=== PATIENT | female | born 1990 | race Caucasian/White ===

== ENCOUNTER → 2024-03-12 10:17 | Outpatient (BNVA) | payer SELFPAY | PROVIDERS: Visit Provider Physician Assistant Medical ==

== ENCOUNTER → 2024-06-07 10:07 | Outpatient (BNVA) | payer OTHER, SELFPAY | PROVIDERS: Visit Provider Physician Assistant Medical | DX: Z13.89 Encounter for screening for other disorder (principal) | CPT/HCPCS: 84450; 84460; 86803; 87389 ==

== ENCOUNTER 2024-06-19 15:07 | Outpatient (AMB) | payer MEDICAID, SELFPAY ==
--- NOTE | 2024-06-19 15:09 | MHC.OFFVIS ---
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 The patient states that she 1st injured her right knee when she was 17 years old and fell off of a horse. Since that time her symptoms have gotten worse. She has tried Tylenol and ibuprofen which gave her only mild relief. She has done physical therapy exercises which aggravated her pain. Allergies No Known Allergies Allergy (Verified 06/19/24 15:13) Medication List - Last Reconciled 06/19/24 by Lemuel Monet MD polymyxin B sulf-trimethoprim 10,000 unit- 1 mg/mL 1 drp ophthalmic (eye) Q3H 3 days Physical Exam Vital Signs: BMI result Body Mass Index 38.4 Const Other: Well-nourished well-developed very friendly female awake alert and oriented x3 in no acute distress Extrem Other: Bilateral lower extremity examination shows good capillary refill, no skin lesions noted, normal sensation light touch Right knee examination shows a minimal effusion, mild crepitus with range of motion, tenderness along her lateral joint line, positive Bia's test, no instability Results Reviewed Results Reviewed: MRI of the patient's right knee done in [place] shows mild diffuse degenerative changes as well as a tear of the anterior horn of the lateral meniscus, no acute bony abnormalities Standing full weight-bearing x-rays of the patient's right knee which she brings with her from [place] show mild diffuse joint space narrowing, no acute bony abnormalities Assessment & Plan Assessment & Plan (1) Joint pain: Code(s): M25.50 - Pain in unspecified joint Category: Medical Plan Ms. Maury Davis presents with right knee pain due to a tear of her lateral meniscus as well as diffuse joint pains possibly due to an inflammatory process such as rheumatoid arthritis or Lyme disease. Thus, I will send the patient for blood work for further evaluation. I will contact her by phone once the blood work results are available. She will call me prior to that time should her symptoms worsen in any way. I spent 20 minutes in reviewing the patient's records and imaging studies, seeing the patient and documenting in the medical record. Orders: Orders LAW Reflex Titer and Pattern Today M25.50 - Pain in unspecified joint XR knee RT 3V Today M25.561 - Pain in right knee Erythrocyte Sedimentation Rate Today M25.50 - Pain in unspecified joint C Reactive Protein Today M25.50 - Pain in unspecified joint Lyme IgG/IgM w/reflex to WB Today M25.50 - Pain in unspecified joint Rheumatoid Factor Today M25.50 - Pain in unspecified joint Medications: New ibuprofen 800 mg PO Q8H PRN 90 tabs 2RF pain Coding Level of Care Code New Pt Level 3 (48463) Complex EM visit Add On G2211 Diagnoses Joint pain M25.50
[2024-06-19 15:14] VITALS: BMI 38.4
== END 2024-06-19 15:31 | disposition home or self-care (01) ==
PROVIDERS: Visit Provider Orthopaedic Surgery
DX: M17.0 Bilateral primary osteoarthritis of knee (principal); S83.281A Other tear of lateral meniscus, current injury, right knee, initial encounter
CPT/HCPCS: 99203

== ENCOUNTER 2024-06-19 15:38 | Outpatient (REF) | payer MEDICAID, SELFPAY ==
[2024-06-19 18:02] LABS: C Reactive Protein 0.36 mg/dL (< or = 0.50)
[2024-06-19 18:05] LABS: Rheumatoid Factor < 13.0 IU/mL (<15.0)
[2024-06-19 18:12] LABS: Erythrocyte Sedimentation Rate 7 MM/HR (0-20)
[2024-06-21 01:38] LABS: Lyme Abs Screen <0.90 index
[2024-06-21 14:04] LABS: Anti Nuclear Antibody Screen NEGATIVE (NEGATIVE)
== END 2024-06-19 15:39 | disposition home or self-care (01) ==
LOC: HO.LAB 15:38
PROVIDERS: Visit Provider Orthopaedic Surgery
DX: M25.50 Pain in unspecified joint (principal)
CPT/HCPCS: 36415; 85652; 86038; 86140; 86431; 86617; 86618; 99202

== ENCOUNTER 2024-07-19 14:13 | Outpatient (AMB) | payer MEDICAID, SELFPAY ==
--- NOTE | 2024-07-19 14:14 | A.OFFVIS_ITS ---
Intake Visit Reasons: Bilateral knee pains Intake Note: Tamara is a 34 year old female presents with complaints of progressively worsening bilateral knee pains. The patient describes her pains as sharp in nature. Her pains have gotten worse over the last year in spite of continued non operative treatments. She has done physical therapy exercises which aggravated her pain. She has also tried Tylenol and ibuprofen which gave her minimal relief. She denies any locking or give-way. Allergies No Known Allergies Allergy (Verified 06/19/24 15:13) Medication List - Last Reconciled 07/19/24 by Lemuel Monet MD ibuprofen 800 mg PO Q8H PRN polymyxin B sulf-trimethoprim 10,000 unit- 1 mg/mL 1 drp ophthalmic (eye) Q3H 3 days PFSH Medical History (Updated 07/20/24 @ 10:05 by Lemuel Monet MD) Left knee pain Physical Exam Const Other: Well-nourished well-developed very friendly female awake alert and oriented x3 in no acute distress Extrem Other: Bilateral lower extremity examination shows good capillary refill, no skin lesions noted, normal sensation light touch Bilateral knee examination shows minimal effusions, mild crepitus with range of motion, no instability Office Procedures Joint Injection/Aspiration Joint Injection/Aspiration Primary Site: right knee Prep: site was prepped using aseptic technique Injected: 40 mg of, DepoMedrol and 1% plain lidocaine Procedure: The patient tolerated the procedure well Coding 74851 - Large joint Procedure code (CPT) selection complete Joint Injection/Aspiration Joint Injection/Aspiration Primary Site: left knee Prep: site was prepped using aseptic technique Injected: 40 mg of, DepoMedrol and 1% plain lidocaine Procedure: The patient tolerated the procedure well Coding 38754 - Large joint Procedure code (CPT) selection complete Results Reviewed Results Reviewed: Standing full weight-bearing x-rays of the patient's bilateral knees taken p reviously show mild diffuse joint space narrowing, no acute bony abnormalities Assessment & Plan Assessment & Plan (1) Left knee pain: Code(s): M25.562 - Pain in left knee Category: Medical (2) Right knee pain: Code(s): M25.561 - Pain in right knee Category: Medical Plan Ms. Maury Davis presents with bilateral knee pains due to early degenerative joint disease. The risks and benefits of bilateral knee cortisone injections were discussed at length with the patient. The patient wished to proceed. She tolerated the injections well. She will continue with her home exercise program. She will follow up with me on an as-needed basis should her symptoms not plateau at an unacceptable level over the next few months. I spent 22 minutes in reviewing the patient's records and imaging studies, seeing the patient and documenting in the medical record. Orders: Orders AMB Joint Injection/Aspiration 07/19/24 M25.562 - Pain in left knee AMB Joint Injection/Aspiration 07/19/24 M25.561 - Pain in right knee Coding Level of Care Code Est Pt Level 3 (58027) Complex EM visit Add On G2211 Diagnoses Left knee pain M25.562 Right knee pain M25.561 CPT Codes Coding - 90091 Large joint: 85961 - Large joint ([id number]) Coding - 25327 Large joint: 13681 - Large joint ([id number])
== END 2024-07-19 14:36 | disposition home or self-care (01) ==
PROVIDERS: Visit Provider Orthopaedic Surgery
DX: M17.0 Bilateral primary osteoarthritis of knee (principal)
CPT/HCPCS: 20610; 99213

== ENCOUNTER → 2024-07-19 14:13 | Outpatient (BNVA) | payer MEDICAID, SELFPAY | PROVIDERS: Visit Provider Orthopaedic Surgery | DX: M25.561 Pain in right knee (principal); M25.562 Pain in left knee | CPT/HCPCS: 20610; 99212; J1010; J2003 ==

== ENCOUNTER 2024-10-25 07:50 | Outpatient (AMB) | payer MEDICAID, SELFPAY ==
--- NOTE | 2024-10-25 07:56 | A.OFFVIS_ITS ---
Vital Signs 10/25/24 07:58 Height 5 ft 9 in Weight 260 lb BMI 38.4 Intake Visit Reasons: Bilateral knee pains Intake Note: Tamara is a 34 year old female who presents with complaints of progressively worsening bilateral knee pains. She describes her pains as sharp in nature. She has taken Tylenol and ibuprofen which gave her minimal relief. She has had cortisone injections in the past. The most recent set of injections gave her only mild relief. She denies any locking or giving way. She has done physical therapy which aggravated her pain. At this point her bilateral knee pains are interfering with her activities of daily living and her ability to sleep well through the night. Allergies No Known Allergies Allergy (Verified 10/25/24 07:58) Medication List - Last Reconciled 10/25/24 by Lemuel Monet MD albuterol sulfate 90 mcg/actuation 2 puffs inhalation QID PRN 30 days ibuprofen 800 mg PO Q8H PRN polymyxin B sulf-trimethoprim 10,000 unit- 1 mg/mL 1 drp ophthalmic (eye) Q3H 3 days PFSH Medical History (Updated 10/25/24 @ 08:24 by Lemuel Monet MD) Left knee pain Physical Exam Vital Signs: BMI result Body Mass Index 38.4 Const Other: Well-nourished well-developed very friendly female awake alert and oriented x3 in no acute distress Extrem Other: Bilateral lower extremity examination shows good capillary refill, no skin lesions noted, normal sensation light touch Bilateral knee examination shows minimal effusions, palpable crepitus with range of motion, pain with range of motion, no instability Office Procedures AMB Joint Injection/Aspiration Joint Injection/Aspiration Primary Site: left knee Prep: site was prepped using aseptic technique Injected: 20 mg of (Euflexxa viscosupplementation) and 1% plain lidocaine Procedure: The patient tolerated the procedure well Coding 51150 - Large joint Procedure code (CPT) selection complete AMB Joint Injection/Aspiration Joint Injection/Aspiration Primary Site: right knee Prep: site was prepped using aseptic technique Injected: 20 mg of (Euflexxa viscosupplementation) and 1% plain lidocaine Procedure: The patient tolerated the procedure well Coding 98752 - Large joint Procedure code (CPT) selection complete Results Reviewed Results Reviewed: X-rays of the patient's bilateral knees taken previously show joint space narrowing, subchondral sclerosis, no acute bony abnormalities Assessment & Plan Assessment & Plan (1) Osteoarthritis of left knee: Code(s): M17.12 - Unilateral primary osteoarthritis, left knee Category: Medical (2) Osteoarthritis of right knee: Code(s): M17.11 - Unilateral primary osteoarthritis, right knee Category: Medical Plan Ms. Maury Davis presents with bilateral knee pains due to osteoarthritis. The risks and benefits of bilateral knee Euflexxa viscosupplementation injections were discussed at length with the patient. The patient wished to proceed. She tolerated the 1st set of injections well. She will continue with her home exercise program. She will follow up next week as scheduled. I spent 20 minutes in reviewing the patient's records and imaging studies, seeing the patient and documenting in the medical record. Orders: Orders AMB Joint Injection/Aspiration Today M17.12 - Unilateral primary osteoarthritis, left knee AMB Joint Injection/Aspiration Today M17.11 - Unilateral primary osteoarthrit is, right knee Coding Level of Care Code Est Pt Level 3 (36270) Complex EM visit Add On G2211 Diagnoses Osteoarthritis of left knee M17.12 Osteoarthritis of right knee M17.11 CPT Codes Coding - 52394 Large joint: 11732 - Large joint ([id number]) Coding - 09217 Large joint: 63009 - Large joint ([id number])
[2024-10-25 07:58] VITALS: BMI 38.4
== END 2024-10-25 08:20 | disposition home or self-care (01) ==
PROVIDERS: Visit Provider Orthopaedic Surgery
DX: M17.0 Bilateral primary osteoarthritis of knee (principal)
CPT/HCPCS: 20610; 99213

== ENCOUNTER → 2024-10-25 07:50 | Outpatient (BNVA) | payer MEDICAID, SELFPAY | PROVIDERS: Visit Provider Orthopaedic Surgery | DX: M17.0 Bilateral primary osteoarthritis of knee (principal) | CPT/HCPCS: 20610; 99212; J2003; J7323 ==

== ENCOUNTER 2024-10-31 15:27 | Outpatient (AMB) | payer MEDICAID, SELFPAY ==
--- NOTE | 2024-10-31 15:32 | MHC.OFFVIS ---
Intake Visit Reasons: Inj-Bilateral Knee Euflexxa #2 Intake Note: Tamara is a 34 year old female who presents today for her second dose of Euflexxa on both of her knees. The patient states that she got mild relief from the 1st set of injections. She continues with her home exercise program. Allergies No Known Allergies Allergy (Verified 10/25/24 07:58) Medication List - Last Reconciled 11/01/24 by Lemuel Monet MD albuterol sulfate 90 mcg/actuation 2 puffs inhalation QID PRN 30 days ibuprofen 800 mg PO Q8H PRN polymyxin B sulf-trimethoprim 10,000 unit- 1 mg/mL 1 drp ophthalmic (eye) Q3H 3 days PFSH Medical History (Updated 10/25/24 @ 08:24 by Lemuel Monet MD) Left knee pain Physical Exam Extrem Other: Bilateral knee examination shows minimal effusions, palpable crepitus with range of motion, pain, no instability Assessment & Plan Assessment & Plan (1) Osteoarthritis of left knee: Code(s): M17.12 - Unilateral primary osteoarthritis, left knee Category: Medical (2) Osteoarthritis of right knee: Code(s): M17.11 - Unilateral primary osteoarthritis, right knee Category: Medical Plan Ms. Maury Davis presents with bilateral knee pains due to osteoarthritis. The risks and benefits of a 2nd set of Euflexxa injections were discussed at length with the patient. The patient wished proceed. She tolerated the injections well. She will continue with her home exercise program. She will follow up next week as scheduled. Orders: Orders AMB Joint Injection/Aspiration 10/31/24 M17.11 - Unilateral primary osteoarthritis, right knee AMB Joint Injection/Aspiration 10/31/24 M17.12 - Unilateral primary osteoarthritis, left knee Coding Level of Care Code Procedure Only Diagnoses Osteoarthritis of left knee M17.12 Osteoarthritis of right knee M17.11
== END 2024-10-31 15:57 | disposition home or self-care (01) ==
PROVIDERS: Visit Provider Orthopaedic Surgery
DX: M17.0 Bilateral primary osteoarthritis of knee (principal)
CPT/HCPCS: 20610

== ENCOUNTER → 2024-10-31 15:27 | Outpatient (BNVA) | payer MEDICAID, SELFPAY | PROVIDERS: Visit Provider Orthopaedic Surgery | DX: M17.0 Bilateral primary osteoarthritis of knee (principal) | CPT/HCPCS: 20610; J2003; J7323 ==

== ENCOUNTER 2024-11-07 15:19 | Outpatient (AMB) | payer MEDICAID, SELFPAY ==
--- NOTE | 2024-11-07 15:20 | A.OFFVIS_ITS ---
Vital Signs 11/07/24 15:21 Height 5 ft 9 in Weight 260 lb BMI 38.4 Intake Visit Reasons: Inj-Bilateral Knee Euflexxa #3 Intake Note: Tamara is a 34 year old female who presents today for her third and last dose of bilateral knee Euflexxa gel injections. She states that she has gotten mild relief from the 1st 2 injections. She continues with her exercise program. Allergies No Known Allergies Allergy (Verified 11/07/24 15:21) Medication List - Last Reconciled 11/07/24 by Lemuel Monet MD albuterol sulfate 90 mcg/actuation 2 puffs inhalation QID PRN 30 days ibuprofen 800 mg PO Q8H PRN polymyxin B sulf-trimethoprim 10,000 unit- 1 mg/mL 1 drp ophthalmic (eye) Q3H 3 days PFSH Medical History (Updated 10/25/24 @ 08:24 by Lemuel Monet MD) Left knee pain Physical Exam Vital Signs: BMI result Body Mass Index 38.4 Extrem Other: Bilateral knee examination shows minimal effusions, mild crepitus with range of motion, pain with range of motion, no instability Office Procedures AMB Joint Injection/Aspiration Joint Injection/Aspiration Primary Site: left knee Prep: site was prepped using aseptic technique Injected: 20 mg of (Euflexxa viscosupplementation) and 1% plain lidocaine Procedure: The patient tolerated the procedure well Coding 51422 - Large joint Procedure code (CPT) selection complete AMB Joint Injection/Aspiration Joint Injection/Aspiration Primary Site: right knee Prep: site was prepped using aseptic technique Injected: 20 mg of (Euflexxa viscosupplementation) and 1% plain lidocaine Procedure: The patient tolerated the procedure well Coding 57080 - Large joint Procedure code (CPT) selection complete Assessment & Plan Assessment & Plan (1) Osteoarthritis of left knee: Code(s): M17.12 - Unilateral primary osteoarthritis, left knee Category: Medical (2) Osteoarthritis of right knee: Code(s): M17.11 - Unilateral primary osteoarthritis, right knee Category: Medical Plan Tamara presents with bilateral knee pains due to osteoarthritis. The risks and benefits of a 3rd set of Euflexxa injections were discussed at length with the patient. The patient wished to proceed. She tolerated the injections well. She will continue with her home exercise program. She will contact me prior to her follow-up appointment in 3 months should any questions or concerns arise. Orders: Orders AMB Joint Injection/Aspiration Today M17.12 - Unilateral primary osteoarthritis, left knee AMB Joint Injection/Aspiration Today M17.11 - Unilateral primary osteoarth ritis, right knee Medications: New diclofenac sodium 1% (Arthritis Pain (diclofenac)) Apply to effected area as directed 2 grams topical QID 100 grams 3RF Coding Level of Care Code Procedure Only Diagnoses Osteoarthritis of left knee M17.12 Osteoarthritis of right knee M17.11 CPT Codes Coding - 24270 Large joint: 72450 - Large joint ([id number]) Coding - 41327 Large joint: 74155 - Large joint ([id number])
[2024-11-07 15:21] VITALS: BMI 38.4
--- OUTSIDE RECORDS SUMMARY | 2024-11-07 17:16 | XMS_ITS | Clinical Summary ---
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 Non-restorable tooth 05/07/2024 Social History Tobacco Use Types Packs/Day Years Used Date Smoking Tobacco: Never Smokeless Tobacco: Never Tobacco Cessation:Counseling Given: Not Answered Alcohol Use Standard Drinks/Week Comments Defer 0 (1 standard drink = 0.6 oz pur e alcohol) Comments Unknown Sex and Gender Information Value Date Recorded Sex Assigned at Female 08/06/2022 5:32 PM EDT Legal Sex Female 5:32 PM EDT Gender Identity Female 08/06/2022 5:32 PM EDT Sexual Orientation Choose not to disclose 2023 10:59 AM EDT Plan of Treatment Health Maintenance Due Date Last Done Comments Dental Oral Exam 1991 Dental Prophylaxis 1991 Dental X-Ray: Bitewings 1991 Depression Screening 1991 HIV Screening 1991 SDOH Screening 1991 Alcohol/Substance Use Screening 2003 Family Planning (PISQ) 2006 Hepatitis C Screening 2009 DTaP/Tdap/Td Vaccines (1 - Tdap) 2010 Hepatitis B Vaccines (1 of 3 - 19+ 3-dose series) 2010 Pap Smear 2012 Cervical Cancer Screening 2021 HPV/Cotest 2021 COVID-19 Vaccine (1 - 2023-2 5 season) 2024 Influenza Vaccine (#1) 2024 Tobacco Screening 05/07/2025 05/07/2024 Dental X-Ray: Full Mouth 05/08/2027 05/07/2024 Zoster Vaccines (1 of 2) 2041 RSV Patients and Pa tients Aged 60 years or older (1 - 1-dose 75+ series) 2066 HIB Vaccines Aged Out No longer eligi ble based on patient's age to complete this topic HPV Vaccines Aged Out No longer eligi ble based on patient's age to complete this topic Hepatitis A Vaccines Aged Out No long er eligible based on patient's age to complete this topic IPV Vaccines Aged Out No longer eligi ble based on patient's age to complete this topic Meningococcal Vaccine Aged Out No crow tori eligible based on patient's age to complete this topic Pneumococcal Vaccine: Pediat rics (0 to 5 Years) and At-Risk Patients (6 to 49) Years) Aged Out No longer elig ible based on patient's age to complete this topic RSV under 20 months Aged Out No longe r eligible based on patient's age to complete this topic Rotavirus Vaccines Aged Out No longer eligible based on patient's age to complete this topic Procedures Procedure Name Priority Date/Time Associated Diagnosis Comments PANORAMIC RADIOGRAPHIC IMAGE Routine 05/07/2024 3:30 PM EDT from Last 3 Months or Most Recently Relevant to Health Maintenance Insurance [facility] MEDICAID STAND ADULT
--- OUTSIDE RECORDS SUMMARY | 2024-11-07 17:16 | XMS_ITS | Patient Health Record ---
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 Primary Care Provider Unavailab MARCELLE Ba Unavailable [phone] Reason For Referral No Information Medications Medication SIG (Take, Route, Frequency, Duration) Notes Start Date End Date Status ProAir HFA 108 (90 Base) MCG/ACT 1 puff as needed Inhalation every 4 hrs Active Multivitamin - 1 tablet Orally Once a day for 30 day(s) Active Dicyclomine HCl 20 MG 1 tablet Orally Th ree times a day for 30 day(s) Active Co Q 10 60 MG as directed Orally Active Vitamin D 50 MCG (1999 UT) 1 tablet Oral ly Once a day for 30 day(s) Active Vitamin C 500 MG as directed Orally Active Plan Of Treatment No Information Insurance Providers Payer Name Payer Address Payer Phone Subscriber Number Group Number Insured Name Patient Relationship to Insured Coverage Start Date Coverage End Date [employer] [address] [address] [place], [place] [id number] Tamara Mendiola Self - patient is the insured 1 Medical (General) History Medical History History ICD Code Onychomycosis Pure Hyperglyceridemia Obesity Allergic Rhinitis Asthma Urinary Disorder Sleep Disorder Urinary Incontinence HPV Pelvic and Perineal Pain Surgical History Surgery Date(Month/Year) Tonsillectomy Hospitalization History Reason Date(Month/Year) See Notes
== END 2024-11-07 15:43 | disposition home or self-care (01) ==
PROVIDERS: Visit Provider Orthopaedic Surgery
DX: M17.0 Bilateral primary osteoarthritis of knee (principal)
CPT/HCPCS: 20610

== ENCOUNTER → 2024-11-07 15:19 | Outpatient (BNVA) | payer MEDICAID, SELFPAY | PROVIDERS: Visit Provider Orthopaedic Surgery | DX: M17.0 Bilateral primary osteoarthritis of knee (principal) | CPT/HCPCS: 20610; J2003; J7323 ==

== ENCOUNTER 2025-04-17 01:47 | Emergency (ER) | payer OTHER, SELFPAY ==
--- NOTE | ~2025-04-17 | US_ITS ---
EXAMINATION: US ABDOMEN LIMITED CLINICAL INFORMATION: Right upper quadrant abdominal pain. COMPARISON: None available. TECHNIQUE: Real-time ultrasound of the right upper quadrant abdomen using grayscale technique. FINDINGS: There are multiple layering intraluminal hyperechoic lesions with posterior shadowing within the gallbladder. No pericholecystic fluid collection or gallbladder wall thickening. Common bile duct measures 4 mm. No gross ascites. US/US abdomen limited IMPRESSION: Cholelithiasis. No choledocholithiasis. Electronically signed by: Quincy Morales MD 04/17/2025 09:05 AM EDT
[2025-04-17 01:55] VITALS: BP 137/83; PULSE 79; RESP 18; TEMP 36.8; O2SAT 97; BMI 38.6
[2025-04-17 02:23] LABS: Hematocrit 36.1 % (37.0-47.0); Hemoglobin 12.6 g/dl (12.0-16.0); Mean Corpuscular HGB Conc 34.9 g/dl (31.0-35.0); Mean Corpuscular Hemoglobin 27.2 pg (27.0-33.0); Mean Corpuscular Volume 78.0 fL (80.0-98.0); NRBC Abs Auto 0.000 X10*3/uL (0.0-0.012); NRBC Pct Auto 0.0 /100WBC (0.0-0.2); Platelet Count 261 X10*3/uL (160-400); Red Blood Count 4.63 X10*6/uL (4.20-5.50); White Blood Count 7.9 X10*3/uL (4.8-10.8)
[2025-04-17 02:25] LABS: Appearance Urine Clear; Glucose Urine UA Negative (Negative); PH 6.5 (5.0-9.0); Specific Gravity - Urine 1.025 (1.005-1.025); UMIC TRIGGER UACC YES
[2025-04-17 02:27] LABS: UPreg QC Valid YES
[2025-04-17 02:30] LABS: Alanine Aminotransferase 25 U/L (0-31); Albumin Level 3.9 g/dL (3.5-5.0); Alkaline Phosphatase 43 U/L (39-117); Anion Gap 13 (12-20); Aspartate Amino Transferase 25 U/L (5-31); Blood Urea Nitrogen 14 mg/dL (9-16); Calcium 8.5 mg/dL (8.4-10.2); Carbon Dioxide 24 mmol/L (22-29); Chloride 106 mmol/L (96-108); Creatinine Clr Calc Pharmacy 114.8; Estimated Glomerular Filt Rate > 60; Lipase 29 U/L (8-78); Magnesium 2.1 mg/dL (1.6-2.6); Potassium 3.7 mmol/L (3.3-5.1); Sodium 139 mmol/L (135-145); Total Protein 6.6 g/dL (6.5-8.0)
[2025-04-17 03:19] LABS: UACC Culture Trigger YES
[2025-04-17 06:05] VITALS: BP 134/83; PULSE 68; TEMP 36.6; O2SAT 100
--- NOTE | 2025-04-17 07:54 | ED.ABDPAIN ---
HPI - Abdominal Pain General Chief Complaint: Abdominal Pain Stated Complaint: upper right abdominal pain, vomiting Time Seen by Provider: 04/17/25 07:47 Source: patient Mode of arrival: ambulatory History of Present Illness ED Provider: HPI narrative: 35-year-old woman otherwise healthy takes p.r.n. albuterol and she is on control pills reports that she has history of gallstones and occasionally has been having biliary colic, woke up 01:00 in the morning with right upper quadrant pain radiating up around her flank, had nausea vomited, ate some chips prior to bedtime, no fevers or chills, no skin color changes. No vaginal bleeding or discharge. MD elicited complaint: abdominal pain Related Data Previous Rx's ?Medication ?Instructions ?Recorded polymyxin B sulfate 10,000 1 drp ophthalmic (eye) Q3H 3 days 06/07/24 unit-trimethoprim 1 mg/mL eye drops #10 mL ibuprofen 800 mg tablet 800 mg PO Q8H PRN pain #90 tabs 06/19/24 albuterol sulfate 90 mcg/actuation 2 puff inhalation QID PRN 09/25/24 aerosol inhaler shortness of breath or wheezing 30 days #8.5 grams diclofenac sodium 1 % topical gel 2 g topical QID #100 grams 11/07/24 (Arthritis Pain (diclofenac)) Allergies Allergy/AdvReac Type Severity Reaction Status Date / Time No Known Allergies Allergy Verified 04/17/25 01:58 Review of Systems Constitutional: Reports as per HPI [facility] Past Medical History Medical History (Updated 04/17/25 @ 09:27 by Toan Elizabeth DO) Left knee pain Social History Social History Smoked in Last 30 Days: No Use of substances other than those prescribed or required for medical reasons: No Advance Directives: No Advance Directives Information Provided: Yes Patient : No Physical Exam ED Vital Signs: Vital Signs - 24 hr 04/17/25 01:55 04/17/25 06:05 04/17/25 07:58 Temperature 98.3 F 97.8 F 98.0 F Pulse Rate 79 68 78 Respiratory Rate 18 18 Blood Pressure 137/83 134/83 125/84 Pulse Oximetry 97 100 98 Oxygen Delivery Method Room Air Room Air Room Air BMI result Body Mass Index 38.6 Const Other: Gen: ?Overall well-appearing patient HEENT: PERRLA, EOMI, Neck: Supple, no LAD CV: RRR, no obvious murmurs appreciated Resp: ?No wheezing rales rhonchi no stridor moving air well Abd: ?Bowel sounds present, right upper quadrant tenderness to palpation MSK: FROM, strength 5/5 all extremities Skin: Warm, dry, intact, no jaundice Neuro: ?Alert and oriented x3, moving upper and lower extremities symmetrically, no obvious facial asymmetry noted Medical Decision Making Medical Decision Making [facility] [place] Narrative: 08:03 Continues to have tenderness in the right upper quadrant, blood work reassuring, if she has any evidence for cholecystitis we will plan for surgery consult on admission, other considerations are listed as below, this is not consistent with a SBO did not feel she requires further imaging such as CT or ACS no chest pain or shortness of breath, no hypoxia tachycardic to suspect PE, pending ultrasound we will determine further disposition and workup for now she is fairly symptomatic but does have pain on palpation we will give Toradol we will obtain ultrasound, patient's questions have been answered. 0923: Patient continues to be asymptomatic, I sent a text to Kristan from surgery to make sure patient has outpatient follow up Differential Diagnosis Differential Diagnoses: The differential diagnosis associated with the presentation includes Cholecystitis, pancreatitis, hepatitis, gastritis, cholangitis, choledocholithiasis, SBO, ACS Admission/Observation Consideration of admission/observation: Escalation of care including admission/observation considered Lab Data [facility] [place] Lab Attestation statement: I reviewed the patient's lab results. 04/17/25 02:09 04/17/25 02:09 Labs: Lab Results 04/17/25 04/17/25 Range/Units 02:09 02:10 WBC 7.9 (4.8-10.8) X10*3/uL RBC 4.63 (4.20-5.50) X10*6/uL Hgb 12.6 (12.0-16.0) g/dl Hct 36.1 L (37.0-47.0) % MCV 78.0 L (80.0-98.0) fL MCH 27.2 (27.0-33.0) pg MCHC 34.9 (31.0-35.0) g/dl RDW 14.1 (11.0-16.0) % Plt Count 261 (160-400) X10*3/uL MPV 10.8 (9.4-12.3) fL Absolute Nucleated RBC 0.000 (0.0-0.012) X10*3/uL Nucleated RBC % (auto) 0.0 (0.0-0.2) /100WBC Sodium 139 (135-145) mmol/L Potassium 3.7 (3.3-5.1) mmol/L Chloride 106 (96-108) mmol/L Carbon Dioxide 24 (22-29) mmol/L Anion Gap 13 (12-20) BUN 14 (9-16) mg/dL Creatinine 0.95 (0.5-1.4) mg/dL Estim Creat Clear Calc 114.8 Estimated GFR > 60 Random Glucose 135 H (60-115) mg/dL Calcium 8.5 (8.4-10.2) mg/dL Magnesium 2.1 (1.6-2.6) mg/dL Total Bilirubin 0.2 (0.0-1.0) mg/dL Direct Bilirubin < 0.2 (0.0-0.5) mg/dL AST 25 (5-31) U/L ALT 25 (0-31) U/L Alkaline Phosphatase 43 (39-117) U/L Total Protein 6.6 (6.5-8.0) g/dL Albumin 3.9 (3.5-5.0) g/dL Lipase 29 (8-78) U/L Urine Color Yellow Urine Appearance Clear Urine pH 6.5 (5.0-9.0) Ur Specific [place] 1.025 (1.005-1.025) Urine Protein Trace (Neg-Trace) mg/dL Urine Glucose (UA) Negative (Negative) mg/dL Urine Ketones Trace (Negative) mg/dL Urine Blood Large (3+) H (Negative) Urine Nitrite Negative (Negative) Ur Leukocyte Esterase Moderate (2+) H (Negative) Urine RBC 3-5 H (0-2) /HPF Urine WBC 11-20 H (0-5) /HPF Ur Squamous Epith Cells 3-5 (0-2) /HPF Urine Bacteria 2+ (None Seen) Hyaline Casts 0-2 (0-2) /LPF Urine Test NEGATIVE (NEGATIVE) Radiology Impression Discussion of test interpretation with radiology: I have reviewed the radiologist's reading. Radiologist Impression: US/US abdomen limited IMPRESSION: Cholelithiasis. No choledocholithiasis Medications Administered Discontinued Medications Generic Name Dose Route Start Last Admin Trade Name Haris PRN Reason Stop Dose Admin Ketorolac Tromethamine 15 mg 04/17/25 07:54 04/17/25 08:11 Ketorolac Tromethamine 15 Mg/Ml Vial IM 04/17/25 07:55 15 mg ONCE ONE Administration Discharge Plan Discharge Clinical Impression: Biliary colic, Cholelithiases Patient Disposition: Home, Self-Care Additional Instructions: Evaluated with pain and right upper quadrant radiating around the back, fairly consistent with biliary colic. Description as well as eating greasy food before going to bed, as discussed small meals, carbs and protein okay, no fatty or greasy foods, your blood work has been reassuring, ultrasound with gallstones but no inflammation or infection of the gallbladder, I essentially formation to physician press operator assistant covering Dr. Reynolds's service to make sure you have outpatient follow up appointment, worsening symptoms concerns come back to the ER. Prescriptions: No Action albuterol sulfate 90 mcg/actuation HFA aerosol inhaler 2 puff inhalation QID PRN (Reason: shortness of breath or wheezing) 30 Days Qty: 8.5 11RF ibuprofen 800 mg tablet 800 mg PO Q8H PRN (Reason: pain) Qty: 90 2RF diclofenac sodium [Arthritis Pain (diclofenac)] 1 % gel 2 g topical QID Qty: 100 3RF Rx Instructions: Apply to effected area as directed polymyxin B sulf-trimethoprim 10,000 unit- 1 mg/mL drops 1 drp ophthalmic (eye) Q3H 3 Days Qty: 10 0RF Rx Instructions: use only while awake; do not exceed 6 drops in 24 hours. Continue for a total of 5 days if any symptoms develop Referrals: Chai Reynolds MD [Physician, General Surgery] Clinical Impression: Cholelithiases; Biliary colic Stand Alone Forms: Work/School Release Print Language: Greenlandic
[2025-04-17 07:58] VITALS: BP 125/84; PULSE 78; RESP 18; TEMP 36.7; O2SAT 98
--- NOTE | 2025-04-17 10:03 | P.CONGS_ITS ---
History of Present Illness Consult details Consult date: 04/17/25 <Kristan Hirsch PA-C - Last Filed: 04/17/25 10:17> Reason for consult: gallstones <Kristan Hirsch PA-C - Last Filed: 04/17/25 10:17> Narrative: 35 year old female with known gallstones presented with acute onset of RUQ abd pain. She reports she was awoken last night around 1am with sharp, severe RUQ pain. The pain wrapped around her side. She vomited once. The pain persisted and she therefore decided to seek evaluation in the ED. She reports eating kettle chips late last night. She reports multiple prior episodes over the past 6 years. She reports after her first initial episode, she was evaluated in [place] and found to have gallstones. Laparoscopic cholecystectomy was recommended at that time however she decided against it. The pain usually subsided with those episodes after vomiting. Work up in the ED included CBC, BMP, LFTs which were all WNL. ABD US showed gallstones without wall thickening or pericholecystic fluid, no dilated biliary ducts. She feels improved currently and just reports some mild soreness. She denies fever, chills, diarrhea, constipation, chest pain, difficulty breathing, back pain, change in skin or urine color. She denies any prior abdominal surgery. < Kristan Hirsch PA-C - Last Filed: 04/17/25 10:17> Review of Systems 2 Review of Systems: Yes all other systems are reviewed and are negative < Kristan Hirsch PA-C - Last Filed: 04/17/25 10:17> [facility] Past Medical History Medical History: Medical History (Updated 04/17/25 @ 09:27 by Toan Elizabeth DO) Left knee pain <NIELS Ramon Last Filed: 04/17/25 10:17> Meds Allergies/Adverse reactions: Allergies Allergy/AdvReac Type Severity Reaction Status Date / Time No Known Allergies Allergy Verified 04/17/25 01:58 <NIELS Ramon Last Filed: 04/17/25 10:17> Physical Exam 2 Vital Signs: Vital Signs: Last Vital Signs Temp 98.0 F 04/17/25 07:58 Pulse 78 04/17/25 07:58 Resp 18 04/17/25 07:58 BP 125/84 04/17/25 07:58 Pulse Ox 98 04/17/25 07:58 O2 Del Method Room Air 04/17/25 07:58 BMI result Body Mass Index 38.6 <NIELS Ramon Last Filed: 04/17/25 10:17> Const: General: comfortable, no acute distress and alert <Kristan Hirsch PA-C [place] Last Filed: 04/17/25 10:17> Orientation/consciousness: patient oriented x3 <Kristan Hirsch PA-C [place] Last Filed: 04/17/25 10:17> Resp: Effort & Inspection: normal respiratory effort <NIELS Ramon Last Filed: 04/17/25 10:17> GI: Inspection: Yes normal to inspection, No distended and No scar < Kristan Hirsch PA-C [place] Last Filed: 04/17/25 10:17> Palpation (GI): Soft to palpation, Tenderness to palpation present (GI) (very mild RUQ tenderness to deep palpation) Ellison's sign negative, no guarding and not rigid <Kristan Hirsch PA-C [place] Last Filed: 04/17/25 10:17> Skin: General skin exam: no rashes or lesions noted and no jaundice < NIELS Ramon Last Filed: 04/17/25 10:17> Neuro: General: patient oriented x3 and moves all extremities <Kristan Hirsch PA-C [place] Last Filed: 04/17/25 10:17> Results Labs Result diagrams: 04/17/25 02:09 04/17/25 02:09 <Kristan Hirsch PA-C [place] Last Filed: 04/17/25 10:17> Labs: Abnormal lab results 04/17/25 Range/Units 02:09 Hct 36.1 L (37.0-47.0) % MCV 78.0 L (80.0-98.0) fL Random Glucose 135 H (60-115) mg/dL Urine Blood Large (3+) H (Negative) Ur Leukocyte Esterase Moderate (2+) H (Negative) Urine RBC 3-5 H (0-2) /HPF Urine WBC 11-20 H (0-5) /HPF Short CBC 04/17/25 Range/Units 02:09 WBC 7.9 (4.8-10.8) X10*3/uL Hgb 12.6 (12.0-16.0) g/dl Hct 36.1 L (37.0-47.0) % Plt Count 261 (160-400) X10*3/uL BMP 04/17/25 02:09 Sodium 139 Potassium 3.7 Chloride 106 Carbon Dioxide 24 BUN 14 Creatinine 0.95 Calcium 8.5 Liver Function 04/17/25 Range/Units 02:09 Total Bilirubin 0.2 (0.0-1.0) mg/dL Direct Bilirubin < 0.2 (0.0-0.5) mg/dL AST 25 (5-31) U/L ALT 25 (0-31) U/L Alkaline Phosphatase 43 (39-117) U/L Albumin 3.9 (3.5-5.0) g/dL Urine 04/17/25 04/17/25 Range/Units 02:09 02:10 Urine Color Yellow Urine Appearance Clear Urine pH 6.5 (5.0-9.0) Ur Specific [place] 1.025 (1.005-1.025) Urine Protein Trace (Neg-Trace) mg/dL Urine Glucose (UA) Negative (Negative) mg/dL Urine Test NEGATIVE (NEGATIVE) All other labs normal. <Kristan Hirsch PA-C - Last Filed: 04/17/25 10:17> Imaging Abdominal ultrasound report/results: report reviewed and image reviewed <NIELS Ramon Last Filed: 04/17/25 10:17> Additional studies: Labs reviewed. <NIELS Ramon Last Filed: 04/17/25 10:17> Assessment and Plan (1) Biliary colic: Status: Acute <NIELS Ramon Last Filed: 04/17/25 10:17> (2) Cholelithiases: Qualifiers: Biliary obstruction: without biliary obstruction C holecystitis presence: without cholecystitis Cholelithiasis location: g allbladder Qualified Code(s): K80.20 - Calculus of gallbladder without cholecystitis without obstruction <Kristan Hirsch PA-C - Last Filed: 04/17/25 10:17> Status: Acute <Kristan NIELS Hirsch - Last Filed: 04/17/25 10:17> 35 year old female with known gallstones who presented with acute onset RUQ pain and vomiting. No leukocytosis, LFTs WNL. Her symptoms have subsequently subsided. She has very mild residual tenderness. Clinical picture consistent with biliary colic, no evidence of acute cholecystitis at this time. Discussed proceeding with laparoscopic cholecystectomy, possible open as an outpatient procedure given her recurrent biliary colic. Risks, benefits, alternatives of laparoscopic possible open cholecystectomy were reviewed with the patient including but not limited to bleeding, infection, numbness, pain, poor healing, injury to the liver, bowel or bile ducts, leak, retained stones and the patient wishes to proceed.?All questions were answered. She will call the office to schedule at her convenience. She can call sooner or return to the ED if she develops worsening RUQ pain, persistent nausea/vomiting, fevers/chills, jaundice. <Kristan Hirsch PA-C - Last Filed: 04/17/25 10:17> 35 year old female with known gallstones who presented with acute onset RUQ pain and vomiting. No leukocytosis, LFTs WNL. Her symptoms have subsequently subsided. She has very mild residual tenderness. Clinical picture consistent with biliary colic, no evidence of acute cholecystitis at this time. Discussed proceeding with laparoscopic cholecystectomy, possible open as an outpatient procedure given her recurrent biliary colic. Risks, benefits, alternatives of laparoscopic possible open cholecystectomy were reviewed with the patient including but not limited to bleeding, infection, numbness, pain, poor healing, injury to the liver, bowel or bile ducts, leak, retained stones and the patient wishes to proceed.?All questions were answered. She will call the office to schedule at her convenience. She can call sooner or return to the ED if she develops worsening RUQ pain, persistent nausea/vomiting, fevers/chills, jaundice. Patient seen and examined in the ED and radiology studies reviewed. Agree with the assessment of biliary colic due to cholelithasis and would recommend an elective laparoscopic cholecystectomy, possible open. After a review of the procedure, alternatives and risks, she consents to the Lapaorscopic or possible open cholecystectomy. My office will call her to make arrangements for the surgery. <Chai Reynolds MD - Last Filed: 04/17/25 10:41> Procedures Date of Service Date of Service: 04/17/25 <Kristan Hirsch PA-C - Last Filed: 04/17/25 10:17> 04/17/25 <Chai Reynolds MD - Last Filed: 04/17/25 10:41>
[2025-04-17 10:10] VITALS: BP 119/52; PULSE 66; RESP 18; TEMP 36.7; O2SAT 99
[2025-04-17 10:15] VITALS: BP 119/52; PULSE 66; RESP 18; TEMP 36.7; O2SAT 99
== END 2025-04-17 10:15 | disposition home or self-care (01) ==
PROVIDERS: Emergency Provider Emergency Medicine
DX: K80.70 Calculus of gallbladder and bile duct without cholecystitis without obstruction (principal); R10.11 Right upper quadrant pain; R11.2 Nausea with vomiting, unspecified; Z79.899 Other long term (current) drug therapy
CPT/HCPCS: 36415; 76705; 80053; 81001; 81025; 82248; 83690; 83735; 85027; 87086; 96372; 99284; J1885

== ENCOUNTER → 2025-04-17 04:38 | Outpatient (BNV) | payer OTHER, SELFPAY | PROVIDERS: Emergency Provider Emergency Medicine; Visit Provider Surgery | DX: K80.50 Calculus of bile duct without cholangitis or cholecystitis without obstruction (principal); K80.20 Calculus of gallbladder without cholecystitis without obstruction | CPT/HCPCS: 99283 ==

== ENCOUNTER → 2025-04-17 07:53 | Outpatient (BNV) | payer OTHER, SELFPAY | PROVIDERS: Emergency Provider Emergency Medicine; Visit Provider Radiology Diagnostic Radiology | DX: K80.20 Calculus of gallbladder without cholecystitis without obstruction (principal) | CPT/HCPCS: 76705 ==

== ENCOUNTER 2025-04-24 11:20 | Outpatient (AMB) | payer OTHER, SELFPAY ==
--- NOTE | 2025-04-24 11:26 | MHC.OFFVIS ---
Vital Signs 04/24/25 11:27 Height 5 ft 9 in Weight 261 lb BMI 38.5 Intake Visit Reasons: Left knee pain and giving way Intake Note: Tamara is a 35 year old female who presents with complaints of progressively worsening left knee pain and giving way. The patient describes her pain as sharp in nature. Most of the pain is along the medial aspect of her knee. She states that her left knee will give out several times per day. She has tried Tylenol and ibuprofen which gave her only mild relief. She has also done physical therapy exercises which aggravated her pain. Allergies No Known Allergies Allergy (Verified 04/24/25 11:27) Medication List - Last Reconciled 04/24/25 by Lemuel Monet MD albuterol sulfate 90 mcg/actuation 2 puffs inhalation QID PRN 30 days celecoxib (Celebrex) 200 mg PO DAILY PRN diclofenac sodium 1% (Arthritis Pain (diclofenac)) 2 grams topical QID ibuprofen 800 mg PO Q8H PRN polymyxin B sulf-trimethoprim 10,000 unit- 1 mg/mL 1 drp ophthalmic (eye) Q3H 3 days PFSH Medical History (Updated 04/24/25 @ 11:49 by Lemuel Monet MD) Left knee pain Physical Exam Vital Signs: BMI result Body Mass Index 38.5 Const Other: Well-nourished well-developed very friendly female awake alert and oriented x3 in no acute distress Extrem Other: Left knee examination shows a minimal effusion, mild crepitus with range of motion, tenderness along her medial joint line, positive Bia's test, no instability Results Reviewed Results Reviewed: Standing full weight-bearing x-rays of the patient's left knee show mild diffuse joint space narrowing, no acute bony abnormalities Assessment & Plan Assessment & Plan (1) Tear of medial meniscus of left knee: Code(s): S83.242A - Other tear of medial meniscus, current injury, left knee, initial encounter Category: Medical Plan Ms. Maury Davis presents with progressively worsening left knee pain and mechanical symptoms most likely due to a medial meniscus tear. Thus, I will send the patient for an MRI of her left knee for further evaluation. I will see her back once the MRI is completed to discuss the findings and treatment options. Feel free to call me at any time should questions regarding her orthopedic management arise. I spent 21 minutes in reviewing the patient's records and imaging studies, seeing the patient and documenting in the medical record. Orders: Orders MR knee LT wo con 04/25/25 S83.242A - Other tear of medial meniscus, current injury, left knee, initial encounter Medications: New celecoxib (Celebrex) 200 mg PO DAILY PRN 30 caps 3RF pain Coding Level of Care Code Est Pt Level 3 (56302) Complex EM visit Add On G2211 Diagnoses Tear of medial meniscus of left knee S83.242A
[2025-04-24 11:27] VITALS: BMI 38.5
== END 2025-04-24 11:49 | disposition home or self-care (01) ==
LOC: HO.HOS 11:21
PROVIDERS: Visit Provider Orthopaedic Surgery
DX: S83.242A Other tear of medial meniscus, current injury, left knee, initial encounter (principal)
CPT/HCPCS: 99213; G2211

== ENCOUNTER → 2025-04-24 11:20 | Outpatient (BNVA) | payer OTHER, SELFPAY | PROVIDERS: Visit Provider Orthopaedic Surgery | DX: S83.242A Other tear of medial meniscus, current injury, left knee, initial encounter (principal) | CPT/HCPCS: 99212 ==

== ENCOUNTER 2025-05-11 18:30 | Outpatient (REF) | payer OTHER, SELFPAY ==
--- NOTE | ~2025-05-11 | MR_ITS ---
CLINICAL HISTORY: S83.242A - Other tear of medial meniscus, current injury, left knee, ini... MR left knee without gadolinium Comparison: None provided Findings: No acute fracture or pathologic bone lesion. Lateral patellar subluxation. Lateral ventral trochlear prominence with shallow trochlear groove. Moderate knee joint effusion with small Patel's cyst. Mild edema within the superolateral aspect of the infrapatellar fat pad. Moderate to severe articular cartilage loss overlies the lateral patellar facet and lateral femoral trochlea. Anterior and posterior cruciate ligaments are intact. Collateral ligaments are intact. No disruption of the patellar retinacula or iliotibial band. No tears of the quadriceps, patellar, popliteus, or flexor tendons. Linear horizontal high T2 signal intensity traverses the inner, middle, and peripheral thirds of the medial meniscal body and posterior horn demonstrating inferior articular surface extension, indicating horizontal tearing. Linear oblique high T2 signal intensity traverses the inner, middle, and peripheral thirds of the lateral meniscal body, demonstrating free edge extension, indicating horizontal tearing. IMPRESSION: 1. Medial and lateral meniscal tearing. 2. Findings consistent with lateral patellofemoral friction syndrome. 3. Knee joint effusion and Patel's cyst. This document has been electronically signed by: Brenda Valencia MD on 05/13/2025 15:05:04
== END 2025-05-11 18:31 | disposition home or self-care (01) ==
LOC: HO.MRI 18:30
PROVIDERS: Visit Provider Orthopaedic Surgery
DX: S83.242A Other tear of medial meniscus, current injury, left knee, initial encounter (principal)
CPT/HCPCS: 73721

== ENCOUNTER → 2025-05-11 18:38 | Outpatient (BNV) | payer OTHER, SELFPAY | PROVIDERS: Visit Provider Radiology Diagnostic Radiology | DX: S83.242A Other tear of medial meniscus, current injury, left knee, initial encounter (principal); S83.282A Other tear of lateral meniscus, current injury, left knee, initial encounter; M71.22 Synovial cyst of popliteal space [Baker], left knee; M25.462 Effusion, left knee | CPT/HCPCS: 73721 ==

== ENCOUNTER 2025-05-20 09:29 | Day surgery (SDC) | payer OTHER, SELFPAY ==
--- OUTSIDE RECORDS SUMMARY | 2025-04-18 07:57 | XMS_ITS | Patient Health Record ---
Author Organization [facility] Billing Info Address [address] [place] [address] [place] [address] Care Team Providers Care Robotic Maintenance Technician Name Role Phone Hunter Fish Primary Care Provider Unavailab MARCELLE Ba Unavailable [phone] Reason For Referral No Information Medications Medication [...] Insured Coverage Start Date Coverage End Date [facility] [address] [address] [place], [place] [id number] Tamara Mendiola Self - patient is the insured 1 Medical (General) History Medical History History ICD Code Onychomycosis Pure Hyperglyceridemia Obesity Allergic Rhinitis Asthma Urinary Disorder Sleep Disorder Urinary Incontinence HPV Pelvic and Perineal Pain Surgical History Surgery Date(Month/Year) Tonsillectomy Hospitalization History Reason Date(Month/Year) See Notes
--- OUTSIDE RECORDS SUMMARY | 2025-04-18 07:57 | XMS_ITS | Clinical Summary ---
Author Organization [employer] Address [address] [facility] [address] [place] [address] Care Team Providers Care Public Aid Eligibility Assistant Name Role Phone Unavailable Primary Care Provider [...] 1991 HIV Screening 1991 SDOH Screening 1991 Disability Screening 1991 Alcohol/Substance Use Screening 2003 Family Planning (PISQ) 2006 Hepatitis C Screening 2009 DTaP/Tdap/Td Vaccines (1 - Tdap) 2010 Hepatitis B Vaccines (1 of 3 - 19+ 3-dose series) 2010 Pap Smear 2012 Cervical Cancer Screening 2021 HPV/Cotest 2021 COVID-19 Vaccine (1 - 2023-2 5 season) 2024 Tobacco Screening 05/07/2025 05/07/2024 Influenza Vaccine (#1) 2025 Dental X-Ray: Full Mouth 05/08/2027 05/07/2024 Zoster [...] patient's age to complete this topic Meningococcal B Vaccine Aged Out No l onger eligible based on patient's age to complete this topic Meningococcal Vaccine Aged Out No crow tori eligible based on patient's age to complete this topic Pneumococcal Vaccine: Pediat rics (0 to 5 Years) and At-Risk Patients (6 to 49) Years Aged Out No longer eligi ble based [...] Most Recently Relevant to Health Maintenance Insurance [facility] STAND ADULT
[2025-05-16 13:10] VITALS: BMI 39.2
--- NOTE | 2025-05-17 09:51 | HO.ANESPROP2 ---
Documented by User: Darlene Elaine NP 05/17/25 09:51 HPI - Anesthesia Eval Consult details Narrative: 35yo F for Cholecystectomy Laparoscopic,possible open PMFSH Active Problems Active Problems: All Active Problems Tear of medial meniscus of left knee (Acute) Osteoarthritis of right knee (Acute) Osteoarthritis of left knee (Acute) Joint pain (Acute) Right knee pain (Acute) Left knee pain (Acute) Past Medical History Medical History Hx of endometriosis Snores Asthma Osteoarthritis Left knee pain Surgical History Surgical History Hx of tonsillectomy (1998) Social History Social History Household Members: Significant Other Housing: House Are you a primary pharmacy customer care specialist to a significant other at home: No Do you presently have visiting nurse or other home services: No Patient Tobacco Use Status: Former Tobacco user Second Hand Smoke Exposure: No Substance Use Type: Marijuana Substance Use Type Other:: gummies for sleep Have you been hit, kicked, punched, or otherwise hurt by someone within the past year? If so, by whom?: No Are you DNR?: No Advance Directives: No Advance Directives Information Provided: Yes Advance Directives on File: No Patient : No FDLMP: 03/10/2025 : No Poor oral hygiene: No Meds Allergies Allergy/AdvReac Type Severity Reaction Status Date / Time No Known Allergies Allergy Verified 05/16/25 13:20 Exam Height,Weight and Vital Signs: Height 5 ft 9 in Weight 120.4 kg Pertinent Lab Results Pertinent Lab Results: Laboratory Tests 04/17/25 02:09 WBC 7.9 Hgb 12.6 Hct 36.1 L Plt Count 261 Sodium 139 Potassium 3.7 Chloride 106 Carbon Dioxide 24 BUN 14 Creatinine 0.95 Assessment and Plan Assessment Anesthesia Assessment: Chart Reviewed Documented by User: Ludy Patterson MD 05/20/25 10:15 PMFSH Past Medical History Medical History Hx of endometriosis Snores Asthma Osteoarthritis Left knee pain Family History Family history of problems with anesthesia: No Surgical History Surgical History Hx of tonsillectomy (1998) History of Problems with Anesthesia: No Social History Social History Household Members: Significant Other Housing: House Are you a primary pharmacy customer care specialist to a significant other at home: No Do you presently have visiting nurse or other home services: No Patient Tobacco Use Status: Former Tobacco user Second Hand Smoke Exposure: No Substance Use Type: Marijuana Substance Use Type Other:: gummies for sleep Have you been hit, kicked, punched, or otherwise hurt by someone within the past year? If so, by whom?: No Are you DNR?: No Advance Directives: No Advance Directives Information Provided: Yes Advance Directives on File: No Patient : No FDLMP: 03/10/2025 : No Poor oral hygiene: No Meds Allergies Allergy/AdvReac Type Severity Reaction Status Date / Time No Known Allergies Allergy Verified 05/16/25 13:20 Exam Airway Mallampati Class: II TM Dist: >3cm Neck ROM: Full Heart: rrr Lungs: cta Assessment and Plan Assessment Anesthesia Assessment: Anesthesia Plan Discussed Final Anesthetic Review Family History of Problems with Anesthesia: No History of Problems with Anesthesia: No NPO: Yes ASA Class: II Final Preanesthetic Review: No Changes in Pt Med Stat, Meds/Allgs Chart Reviewed, Consent Obtained/Reviewed and Anes Risks/Benef Reviewed Patient Risk: Intermediate Procedure Risk: Intermediate Anesthetic Plan Anesthetic Plan: GA and Agree w/ Assess. and Plan Disposition: Standard PACU
[2025-05-20] VITALS (10 sets, daily range): BP systolic 114–153; BP diastolic 70–92; PULSE 72–99; RESP 12–16; TEMP 36.3–36.6; O2SAT 97–100
[2025-05-20] MEDS: Lactated Ringers 1,000 ML 100 ML IVCONT (09:54)
[2025-05-20 09:57] LABS: UPreg QC Valid YES
--- NOTE | 2025-05-20 11:36 | MHC.SHP ---
Pre-Procedural Eval Section A - 24 Hr Update-Section A only Date of Service: 05/20/25 The patient is an INPATIENT: No Changes since office visit: Yes Patient answered all questions; No Cold of Flu in the past 2 weeks, No New Medical Problems and No Changes in Medication The patient has been examined within 24 hours of the surgical procedure. The History & Physical has been completed within 30 days and I have reviewed it.: No Section B - Complete if H&P > 30 days Chief Complaint: Calculus of gallbladder with acute cholecystitis Details of Present Illness: No change in patient's symptoms patient denies abdominal pain currently Relevant Family History (Specify if Yes): No Relevant Social History: None Present Medications: see Short Stay Collaborative assessment Medical History: No relevant PMH History of Previous Operations: No relevant previous surgery Allergies: Allergies Allergy/AdvReac Type Severity Reaction Status Date / Time No Known Allergies Allergy Verified 05/16/25 13:20 Review of Systems Sugical H&P ROS: Negative: Constitution, Cardiovascular, Respiratory, Neurological, Psychiatric, Hem-Onc, Allergic/Immunologic, Gastrointestinal, Genitourinary, Musculoskeletal, Integumentary, Endocrine and Eyes/Ears/Nose/Throat Exam Surgical H&P Exam: Normal: HEENT, Normal: Heart, Normal: Lungs, Normal: Extremities, Normal: Abdomen, Normal: Skin and Normal: Neurological Plan Diagnosis/Plan: Unchanged I have reviewed the history and physical and performed a pertinent physical examination on my patient. No changes have occurred unless specified. Time Spent With Patient Time: Total time managing care of this patient today ____ minutes.
[2025-05-20] MEDS: cefoTEtan disodium 2 GM VIAL IVPUSH (12:10)
--- NOTE | 2025-05-20 13:04 | P.OP_ITS ---
Operative Note Operative Note Date of Service: 05/20/25 Narrative: Preoperative diagnosis: Acute Cholecystitis, cholelithiasis Postoperative diagnosis: Same Procedure: Laparoscopic cholecystectomy Surgeon: Chai Reynolds MD Lockstitch Cup Setter: Kristan Hirsch PA-C Anesthesia: General endotracheal Indications for procedure: 35-year-old female patient presenting with complaints of abdominal pain in the right upper quadrant found to have multiple gallstones within the gallbladder presenting today for laparoscopic cholecystectomy Operative findings: Distended gallbladder with multiple small gallstones within the gallbladder Specimen: gallbladder Estimated blood loss: Less than 2 mL Complications: None Procedure details: Patient was brought to the OR and placed in a supine position. After administering general anesthesia the patient's abdomen was prepped with ChloraPrep and draped in a sterile fashion. A surgical time-out was called the consent confirmed. Patient received preoperative antibiotics and Venodyne boots were in place. Local anesthesia consisting of 0.5% Sensorcaine without epinephrine was infiltrated in a periumbilical region. A 5 mm incision was made above the umbilicus in a transverse fashion. The Veress needle was then inserted while elevating abdominal cavity with towel clips. After positive drop test the abdomen was insufflated to a pressure of 15 mm of mercury. The Veress needle was then removed and a 5 mm trocar inserted. The camera was inserted in the abdomen explored. A 12 mm trocar was then placed in the epigastrium. Two 5 mm trocars placed in the right upper quadrant by the surgical services assistant. The patient was placed in reverse Trendelenburg positioning and rotated to the left. The gallbladder was grasped with the fundus and retracted cephalad by the surgical services assistant. The infundibulum was then grasped and retracted away from the liver bed, also by the surgical services assistant. The Dolphin dissected was then used by the surgeon to dissect the peritoneum off the infundibulum to reveal the junction with the cystic duct. Cystic artery was noted slightly medial and posterior to the cystic duct. After obtaining a critical view the cystic duct was doubly clipped and divided. The cystic artery was then doubly clipped and divided. The gallbladder was then dissected off the liver bed using electrocautery with an L hook. Hemostasis was assured all times using the electrocautery. When the gallbladder is completely dissected off the liver bed was placed in an Endo-Catch bag and brought out through the epigastric incision. The gallbladder was sent to pathology for further examination. The abdomen was then re-examined. The liver bed was irrigated and suctioned dry. No bleeding or bile leak could be identified. CO2 was then evacuated and all trocars removed. Fascia was closed at the epigastric incision using a [id number] 0 Polysorb suture. Skin was closed in all incisions using a subcuticular 4 0 Polysorb suture by both the surgeon and surgical services assistant. Sterile dressings consisting of Steri-Strips, 2 x 2 gauze, and Tegaderm were then applied. The patient tolerated the procedure well. Sponge instrument and needle counts reported as correct. The patient was transferred to PACU in stable condition.
== END 2025-05-20 14:32 | disposition home or self-care (01) ==
PROVIDERS: Nurse Practitioner; Visit Provider Surgery
PROC: 0FT44ZZ Resection of Gallbladder, Percutaneous Endoscopic Approach (ICD-10-PCS; CPT 47562; principal; 2025-05-20 10:50)
DX: K80.00 Calculus of gallbladder with acute cholecystitis without obstruction (principal); J45.909 Unspecified asthma, uncomplicated; M17.0 Bilateral primary osteoarthritis of knee; Z87.891 Personal history of nicotine dependence
CPT/HCPCS: 47562; 81025; 88304; J0131; J1100; J2003; J2250; J2405; J2704; J3010

== ENCOUNTER → 2025-05-20 09:29 | Outpatient (BNV) | payer OTHER, SELFPAY | PROVIDERS: Visit Provider Surgery | DX: K80.00 Calculus of gallbladder with acute cholecystitis without obstruction (principal) | CPT/HCPCS: 47562 ==

== ENCOUNTER 2025-05-31 08:58 | Outpatient (AMB) | payer OTHER, SELFPAY ==
--- NOTE | 2025-05-31 09:10 | MHC.OFFVIS ---
Vital Signs 05/31/25 09:16 Weight 260 lb BP 139/82 Blood Pressure Location Rt brachial Position Sitting Pulse 72 Intake Visit Reasons: s/p lap helder poss open Intake Note: Patient here s/p Laparoscopic cholecystectomy. Patient c/o: no concerns. Reports incisions healing well. No longer taking rx pain meds. Surgery (): 05-20-2025 Chief Enterprise Architect Required: No Accompanied by: Self / Same As Patient Allergies No Known Allergies Allergy (Verified 05/31/25 09:15) HPI HPI s/p lap helder poss open: Details: Overall doing well. Does report some pain from the epigastric port site, and pain with ambulation with activity like bending over. Diet and bowel function arre returning to baseline. She is learning what foods she can tolerate at this point, states that higher fat foods tend to run through her quickly which is new for her. States her incision sites are doing well wondering when she can put vitamin-E cream on for scar healing. [facility] Medical History Hx of endometriosis Snores Asthma Osteoarthritis Left knee pain Surgical History (Updated 05/31/25 @ 10:00 by Jason Waters PA-C) Hx laparoscopic cholecystectomy (05/20/25) Hx of tonsillectomy (1998) Social History Household Members: Significant Other Housing: House Are you a primary health care sanitary technician to a significant other at home: No Do you presently have visiting nurse or other home services: No Comment: n/a Patient Tobacco Use Status: Former Tobacco user Tobacco use type: Cigarette Second Hand Smoke Exposure: No Substance Use Type: Marijuana Review of Systems Const All systems reviewed & are unremarkable except as noted in HPI and below Physical Exam Vital Signs: Last Vital Signs Pulse 72 05/31/25 09:16 BP 139/82 05/31/25 09:16 Const General: comfortable and no acute distress Orientation/consciousness: patient oriented x3 Resp Effort & Inspection: normal respiratory effort and able to speak in complete sentences GI Other: Incision sites healing well, intact, mild induration deep to epigastric port site. No surrounding erythema no fluid collection no discharge Inspection: No distended Palpation (GI): Soft to palpation and nontender Neuro General: patient oriented x3 Assessment & Plan Assessment & Plan (1) S/P laparoscopic cholecystectomy: Code(s): Z90.49 - Acquired absence of other specified parts of digestive tract Category: Medical Plan 35-year-old female status post laparoscopic cholecystectomy on 05/20/2025 returning to the office for routine follow up. Overall patient doing well still has some discomfort in the epigastric port site when ambulating such as bending over but not requiring pain medication. She has been can changes to her diet including low-fat foods, has noticed that would fatty foods they tend to produce a quick bowel movement. She understands that she may need to make other changes to her diet to prevent this, but is conscious of this and making changes trying to eat healthier overall. On exam her abdomen is soft and benign the incision sites appear to be healing well, there is no concern for infection at this time. She would like to be excused from work for 1 more week, then return to light duty the week after, I am in agreement with this. We will continue with activity restrictions, no heavy lifting greater than 15-20 lb for 2 weeks, at that point she can resume activity however I recommended that when she does return resume activity she has started about half of her baseline and progress towards her regular activity habits. No longer requiring follow-up, can follow up as needed. Coding Level of Care Code Global (49659) Diagnoses S/P laparoscopic cholecystectomy Z90.49
--- OUTSIDE RECORDS SUMMARY | 2025-05-31 09:11 | XMS_ITS | Patient Health Record ---
Author Organization [facility] Billing Info Address [address] [place] [address] [place] [address] Care Team Providers Care Water Resource Project Manager Name Role Phone Hunter Fish Primary Care Provider Unavailab MARCELLE Ba Unavailable [phone] Reason For Referral No Information Medications Medication [...] Insured Coverage Start Date Coverage End Date [facility] [address] [address] [place], [place] [id number] Tamara Mendiola Self - patient is the insured 1 Medical (General) History Medical History History ICD Code Onychomycosis Pure Hyperglyceridemia Obesity Allergic Rhinitis Asthma Urinary Disorder Sleep Disorder Urinary Incontinence HPV Pelvic and Perineal Pain Surgical History Surgery Date(Month/Year) Tonsillectomy Hospitalization History Reason Date(Month/Year) See Notes
--- OUTSIDE RECORDS SUMMARY | 2025-05-31 09:11 | XMS_ITS | Clinical Summary ---
Author Organization [employer] Address [address] [facility] [address] [place] [address] Care Team Providers Care Property Appraiser Name Role Phone Unavailable Primary Care Provider [...] of 3 - 19+ 3-dose series) 2010 Pneumococcal Vaccine: Pediatrics (0 to 5 Years) and At-Risk Patients (6 to 49) Years (1 of 2 - PCV) 2010 Pap Smear 2012 Cervical Cancer Screening 2021 HPV/Cotest 2021 COVID-19 Vaccine ( - 2023-2 5 season) 2024 HPV Vaccines (3 - 3-dose series) 04/08/2025 12/04/2024, 10/08/2024 Tobacco Screening 05/07/2025 05/07/2024 Influenza Vaccine (#1) 2025 Dental X-Ray: Full Mouth 05/08/2027 05/07/2024 Zoster Vaccines (1 of 2) 2041 RSV Patients and Patients Aged 60 years or older (1 - [...] Most Recently Relevant to Health Maintenance Insurance [facility] MEDICAID STAND ADULT
--- OUTSIDE RECORDS SUMMARY | 2025-05-31 09:12 | XMS_ITS | Patient Health Record ---
Author Organization [facility] Address [address] [facility] [address] [place] [address] Care Team Providers Care Digital Account Manager Name Role Phone CRISTEL BRAGA Unavailable [phone] Precious Mehta Unavailable Unavailable Allergies No Known Allergies Reason For Referral No Information Medications Medication SIG (Take, Route, Fr equency, Duration) Notes Start Date End Date Status Ciclopirox 8 % External; Duration: 30 Days Active Terbinafine HCl 250 MG Oral; Duration: 24 Days Active Social History Tobacco Use: Social History Observation Description Date Details (start date - stop date) Never Smoker NA - NA Tobacco Use/Smoking Question Answer Notes Tobacco use: nonsmoker Problems Problem Type SNOMED Code ICD Code Onset Dates Problem Status W/U Status Risk Notes Problem Chronic pain syndrome (755198326) Chronic pain syndrome (G89.4) Active confirmed Problem Lumbosacral spondylosis without myelopathy (39640285) Spondylosis without myelopathy or radiculopathy, lumbar region (M47.816) Active confirmed Plan Of Treatment Pending Test Test Name Order Date New Patient UDS 08/02/2022 Future Test Test Name Order Date 42912 Lumbar MBB 2nd joint level 022 25202 Lumbar Medial Branch Block 1st rafita nt level 08/03/2022 Insurance Providers Payer Name Payer Address Payer Phone Subscriber Number Group Number Insured Name Patient Relationship to Insured Coverage Start Date Coverage End Date [employer] [address] [place], [place] [id number] JACOBY JUAN Self - patient is the insured Medical (General) History Medical History History ICD Code asthma - mild intermittent Surgical History Surgery Date(Month/Year) tonsillectomy 2008
[2025-05-31 09:16] VITALS: BP 139/82; PULSE 72
== END 2025-05-31 09:33 | disposition home or self-care (01) ==
LOC: HO.HGS 08:58
DX: Z90.49 Acquired absence of other specified parts of digestive tract (principal)
CPT/HCPCS: 99024

== ENCOUNTER → 2025-05-31 08:58 | Outpatient (BNVA) | payer OTHER, SELFPAY | DX: Z48.815 Encounter for surgical aftercare following surgery on the digestive system (principal); Z90.49 Acquired absence of other specified parts of digestive tract | CPT/HCPCS: 99212 ==

== ENCOUNTER 2025-06-27 09:19 | Outpatient (AMB) | payer OTHER, SELFPAY ==
[2025-06-27 09:23] VITALS: BP 142/68; PULSE 87; RESP 18; TEMP 36.3; O2SAT 97; BMI 38.1
--- NOTE | 2025-06-27 09:23 | MHC.PC.OV ---
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: No Accompanied by: Self / Same As Patient Allergies No Known Allergies Allergy (Verified 06/27/25 09:36) Medication List - Last Reconciled 06/27/25 by ROYAL Yuan albuterol sulfate 90 mcg/actuation 2 puffs inhalation QID PRN 30 days celecoxib (Celebrex) 200 mg PO DAILY PRN drospirenone (contraceptive) (Slynd) 4 mg PO DAILY magnesium oxide 500 mg PO DAILY Tobacco use date assessed: 06/27/25 Dental Screening Dental Screen Date: 06/27/25 Did you have a dental visit in the last 12 months?: Yes Did you have a dental problem in the last 6 months where you did not have access to dental care?: No Was dental information given to patient?: Patient has dentist HPI 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 Last visit: 03/02 Last PE: same Specialist:Orthopedics Dr. Monet, Arthritis in both knees- MRI of the left knee-unable to straighten, meniscus tear in both knees, set of four injections. She is not doing any PT, WHEN she works she wears a knee brace. 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 Consult with engine specialist to evaluate of the her feet has anything to do with it was recommended by orthopedics. Reports that her right ankle hurts at times. OBGYN:[facility] [place] [facility], Dr. Patricia Saldana Past medical history: cholecystectomy last month without any complications, endometriosis, asthma well controlled, HLD, Medications: Family HX: Mother -asthma, father htn, paternal grandmother osteoporosis, both grand patients had DM, pateranal grandmother had alzheimers Problem: The patient is a 35-year-old female [facility] The patient has a history of prediabetes identified during her last physical examination in February of the previous year, necessitating follow-up laboratory work to assess current status. She has not experienced any significant symptoms related to this condition but acknowledges the need for monitoring. The patient reports osteoarthritis in both knees, for which she has previously received cortisone and gel injections. The cortisone injections provided relief, but she is cautious about their long-term use due to potential side effects. She experiences fluctuating knee pain and occasionally uses a knee brace for support. The patient reports that she has a meniscal tear in both knees, confirmed by MRI, with the left knee causing more significant symptoms such as limping and inability to fully straighten the leg. She has undergone a set of four injections, two in each knee, to manage the condition. The patient has a history of endometriosis and ovarian cysts, which have been managed with contraceptives, resulting in a reduction of symptoms and cyst size. Her last evaluation indicated normal uterine appearance. The patient is asthmatic, using an inhaler as needed, primarily triggered by illness or allergies, including pet dander. She manages her exposure to allergens by avoiding direct contact with her pet and practicing good hygiene. The patient has a history of hypercholesterolemia, previously managed with medication and lifestyle changes. She experienced weight fluctuations, which correlated with changes in cholesterol levels, and has recently lost weight following gallbladder surgery. She aims to continue weight loss to further manage her cholesterol levels. The patient underwent cholecystectomy last month and reports satisfactory recovery with no significant complications. She notes changes in bowel habits post-surgery, with stools being less solid but without pain or discomfort. Family history includes Alzheimer's disease on her father's side, with both her grandmother and great-grandmother affected. There is also a history of asthma and high blood pressure in her parents, and osteoporosis in her grandmother. [facility] Medical History (Updated 06/28/25 @ 17:51 by ROYAL Yuan) Hx of endometriosis Snores Asthma Osteoarthritis Left knee pain Surgical History Hx laparoscopic cholecystectomy (05/20/25) Hx of tonsillectomy (1998) Family History Mother Asthma Father HTN (hypertension) Paternal Grandmother Osteoporosis Maternal Grandfather Diabetes mellitus Maternal Grandmother Diabetes mellitus Paternal Grandmother Alzheimer's dementia Social History Household Members: Significant Other Housing: House Are you a primary acute care assistant to a significant other at home: No Do you presently have visiting nurse or other home services: No Comment: n/a Patient Tobacco Use Status: Former Tobacco user Tobacco use type: Cigarette Second Hand Smoke Exposure: No Substance Use Type: Marijuana Questionnaire PHQ-9 Over the last 2 weeks, how often have you been bothered by any of the following problems? 1. Little interest or pleasure in doing things: not at all 2. Feeling down, depressed, or hopeless: several days 3. Trouble falling or staying asleep, or sleeping too much: not at all 4. Feeling tired or having little energy: more than half the days 5. Poor appetite or overeating: several days 6. Feeling bad about yourself - or that you are a failure or have let yourself or your family down: not at all 7. Trouble concentrating on things, such as reading the newspaper or watching television: not at all 8. Moving or speaking so slowly that other people could have noticed. Or the opposite - being so fidgety or restless that you have been moving around a lot more than usual: not at all 9. Thoughts that you would be better off or of hurting yourself in some way: not at all Total score: 4 Source: Developed by Drs. Chin Hidalgo, Shanel Pascual, Timothy Rangel and colleagues, with an educational kelsie from [employer]. Thrive Questionnaire Date Thrive assessed: 06/27/25 I am a: Patient What is your living situation today?: I have a steady place to live Within the past 12 months, did the food you bought not last and you didn't have the money to get more?: Never true Within the past 12 months, did you worry whether your food would run out before you got money to buy more?: Never true Do you have trouble paying for medicines?: Yes Do you have trouble getting transportation to medical appointments?: No Do you have trouble paying your heating and electricity bill?: No Do you have trouble taking care of your child, family member or friend?: No Do you have trouble with day-to-day activities such as bathing, preparing meals, shopping, managing finances, etc.?: No Are you currently unemployed and looking for a job?: No Are you interested in more education?: No Please select the resources that you would like help with: None Currently or been in a relationship where the following occur: No concerns reported THRIVE Score: 0 AUDIT C Alcohol Use Questionnaire (AUDIT-C) 1. How often do you have a drink containing alcohol?: Monthly or less 2. How many drinks containing alcohol do you have on a typical day when you are drinking?: 1 or 2 3. How often do you have six or more drinks on one occasion?: Never Total Score: 1 ANA-7 AMB Questionnaire ANA-7 Date ANA - 7 assessed: 06/27/25 Feeling nervous, anxious, or on edge: 1 = Several days Not being able to stop or control worryin = Not at all Worrying too much about different things: 1 = Several days Trouble relaxin = Several days Being so restless that it is hard to sit still: 0 = Not at all Becoming easily annoyed or irritable: 1 = Several days Feeling afraid as if something awful might happen: 0 = Not at all Total ANA-7 score (0-4 normal; 5-9 mild; 10-14 moderate; 15-21 severe): 4 Source: Developed by Drs. Chin Hidalgo, Shanel Pascual, Timothy Rangel and colleagues, with an educational kelsie from [employer]. Review of Systems Const Denies headache(s) Eyes Denies loss of vision ENT Denies vertigo, Denies dizziness, Denies headache(s) and Denies sore throat Card Denies chest pain, Denies leg edema and Denies lightheadedness Resp Denies cough, Denies hemoptysis and Denies wheezing GI Denies abdominal pain, Denies melena, Denies constipation, Denies diarrhea and Denies vomiting Denies urinary frequency, Denies dysuria and Denies urinary urgency Musc Reports arthralgias (bilateral hip, right ankle (intermittently)), Denies joint swelling, Denies numbness and Denies tingling Neuro Denies Abnormal speech present, Denies behavioral changes, Denies vertigo, Denies dizziness, Denies headache(s), Denies loss of vision, Denies memory loss, Denies numbness and Denies tingling Psych Denies anxiety, Denies behavioral changes, Denies depression, Denies memory loss and Denies panic attacks Mendoza/Lymph Denies easy bleeding and Denies easy bruising Aller/Immun Denies wheezing Physical exam (Primary Care) Vital Signs: Last Vital Signs Temp 97.3 F 06/27/25 09:23 Pulse 87 06/27/25 09:23 Resp 18 06/27/25 09:23 BP 142/68 H 06/27/25 09:23 Pulse Ox 97 06/27/25 09:23 Oxygen Delivery Method Room Air 06/27/25 09:23 BMI result Body Mass Index 38.1 Tobacco/Smoking Status: Tobacco use Status Tobacco use date assessed 06/27/25 06/27/25 09:33 Patient Tobacco Use Status Former Tobacco user 06/27/25 09:33 Tobacco use type Cigarette 06/27/25 09:33 PHQ-9: PHQ-9 Score PHQ-9: Total score 4 06/27/25 09:51 Thrive Assessment: Date of Thrive Assessment Date Thrive assessed 06/27/25 06/27/25 09:33 Currently or been in a relationship where the following occur: No concerns reported Const General: healthy appearing, no acute distress, alert and awake Nutritional Appearance: well nourished Orientation/consciousness: oriented to person, oriented to place and oriented to time HENMT Ears: TM's normal bilaterally General nose exam: Normal nasal mucous membranes and turbinates present Eyes Conjunctivae: conjunctivae normal Sclerae: sclerae normal Pupils: Equal, round and reactive pupils present Neck Neck: Yes no lymphadenopathy and Yes no JVD Thyroid: Thyroid normal Carotids: no bruits Resp Effort & Inspection: normal respiratory effort and not tachypneic Auscultation: no crackles, no rales, no rhonchi and no wheezes Cardio Rate: regular rate Rhythm: regular rhythm Heart sounds: no murmurs and normal S1 and S2 GI Palpation (GI): Soft to palpation, nontender, no hepatomegaly and no splenomegaly Auscultation: normal bowel sounds General: Yes no CVA tenderness Back/Spine/Pelvis Back: no CVA tenderness Skin General skin exam: no rashes or lesions noted and dry skin Neuro General: oriented to person, oriented to place and oriented to time Cranial nerves: Yes Equal, round and reactive pupils present Speech: No Abnormal speech present Gait exam (Neuro): Normal gait present Motor exam (neuro): no tremor noted Extrem Right upper extremity: full ROM Left upper extremity: full ROM Right lower extremity: full ROM, knee Details: swelling; no tenderness and ankle Details: no tenderness and no swelling Left lower extremity: full ROM and knee Details: swelling; no tenderness Psych Mental Status: mental status grossly normal Speech and movement: Normal speech and movement present Affect: normal affect Attitude: cooperative Thought process: Normal thought process present Coding Level of Care Code New Pt Level 4 (31730) Diagnoses Mild intermittent asthma without complication J45.20 Asthma complication type: uncomplicated Asthma persistence: intermittent Asthma severity: mild Prediabetes R73.03 Hyperlipidemia, unspecified hyperlipidemia type E78.5 Hyperlipidemia type: unspecified Tear of medial meniscus of left knee, unspecified tear type, unspecified whether old or current tear, subsequent encounter S83.242D Encounter type: subsequent encounter Meniscus tear of knee type: unspecified type Tear current or old: unspecified Osteoarthritis of right knee, unspecified osteoarthritis type M17.11 Osteoarthritis type: unspecified Hx of endometriosis Z87.42 S/P laparoscopic cholecystectomy Z90.49 Time Spent (min) 38 Assessment & Plan Assessment & Plan (1) Asthma: Comment: PRN inhaler Code(s): J45.909 - Unspecified asthma, uncomplicated Category: Medical Qualifiers: Asthma complication type: uncomplicated Asthma persistence: intermittent Asthma severity: mild Qualified Code(s): J45.20 - Mild intermittent asthma, uncomplicated Plan: The patient uses an inhaler as needed, with a focus on avoiding known allergens such as pet dander. Continued monitoring of asthma symptoms and triggers is recommended. (2) Prediabetes: Code(s): R73.03 - Prediabetes Category: Medical Plan: The patient will undergo follow-up laboratory work to assess current glucose levels and monitor the progression of prediabetes. Lifestyle modifications, including diet and exercise, will be emphasized to manage this condition. (3) HLD (hyperlipidemia): Code(s): E78.5 - Hyperlipidemia, unspecified Category: Medical Qualifiers: Hyperlipidemia type: unspecified Qualified Code(s): E78.5 - Hyperlipidemia, unspecified Plan: The patient will have follow-up lab work to assess cholesterol levels and continue weight management strategies. Dietary modifications and regular exercise will be emphasized to manage cholesterol levels. (4) Tear of medial meniscus of left knee: Code(s): S83.242A - Other tear of medial meniscus, current injury, left knee, initial encounter Category: Medical Qualifiers: Encounter type: subsequent encounter Meniscus tear of knee type: unspecified type Tear current or old: unspecified Qualified Code(s): S83.242D - Other tear of medial meniscus, current injury, left knee, subsequent encounter Plan: The patient has undergone a set of four injections to manage the meniscal tear, with ongoing evaluation of knee function. Further orthopedic consultation may be necessary if symptoms do not improve. (5) Osteoarthritis of right knee: Code(s): M17.11 - Unilateral primary osteoarthritis, right knee Category: Medical Qualifiers: Osteoarthritis type: unspecified Qualified Code(s): M17.11 - Unilateral primary osteoarthritis, right knee Plan: The patient has undergone a set of four injections to manage the meniscal tear, with ongoing evaluation of knee function. Further orthopedic consultation may be necessary if symptoms do not improve. (6) Hx of endometriosis: Code(s): Z87.42 - Personal history of other diseases of the female genital tract Category: Medical Plan: The patient is currently managed with contraceptives, which have reduced symptoms and cyst size. 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 (7) S/P laparoscopic cholecystectomy: Code(s): Z90.49 - Acquired absence of other specified parts of digestive tract Category: Surgical Plan: The patient reports satisfactory recovery post-cholecystectomy, with no significant complications. Monitoring of bowel habits will continue to ensure no further issues arise. Orders: Orders Lipid Panel 06/27/25 E78.5 - Hyperlipidemia, unspecified, R73.03 - Prediabetes, Z00.00 - Encounter for general adult medical examination without abnormal findings Hemoglobin A1c 06/27/25 E78.5 - Hyperlipidemia, unspecified, R73.03 - Prediabetes, Z00.00 - Encounter for general adult medical examination without abnormal findings UA CC w/rflx Micro + Cult 06/27/25 E78.5 - Hyperlipidemia, unspecified, R73.03 - Prediabetes, Z00.00 - Encounter for general adult medical examination without abnormal findings Complete Blood Count Auto Diff 06/27/25 E78.5 - Hyperlipidemia, unspecified, R73.03 - Prediabetes, Z00.00 - Encounter for general adult medical examination without abnormal findings Comprehensive [place]. Panel Fast 06/27/25 E78.5 - Hyperlipidemia, unspecified, R73.03 - Prediabetes, Z00.00 - Encounter for general adult medical examination without abnormal findings TSH reflex Free T4 06/27/25 E78.5 - Hyperlipidemia, unspecified, R73.03 - Prediabetes, Z00.00 - Encounter for general adult medical examination without abnormal findings Vitamin D 25-OH Total 06/27/25 E78.5 - Hyperlipidemia, unspecified, R73.03 - Prediabetes, Z00.00 - Encounter for general adult medical examination without abnormal findings
--- OUTSIDE RECORDS SUMMARY | 2025-06-27 10:49 | XMS_ITS | Clinical Summary ---
Author Organization [employer] Address [address] [place] [address] Care Team Providers Care Research Recruiter Name Role Phone Unavailable Primary Care Provider [...] 2012 Cervical Cancer Screening 2021 HPV/Cotest 2021 HPV Vaccines (3 - 3-dose series) 04/08/2025 12/04/2024, 10/08/2024 Tobacco Screening 05/07/2025 05/07/2024 COVID-19 Vaccine (1 - 2023-2 5 season) 2025 Influenza Vaccine (#1) 2025 Dental X-Ray: Full [...] Most Recently Relevant to Health Maintenance Insurance [facility] MEDICAID STAND ADULT
--- OUTSIDE RECORDS SUMMARY | 2025-06-27 10:49 | XMS_ITS | Patient Health Record ---
Author Organization [facility] Address [address] [place] [address] Care Team Providers Care Automotive Porter Name Role Phone AlonJesus terry Primary Care Provider Unavailabl e Migration, Provider Unavailable Unavailable Reason For Referral No Information Social History Social History Additional Details Category Social Info Options Details Social History Migrated Social History Alcohol history:Never drinks alcohol , Tobacco history:Former Smoker Problems Problem Type SNOMED Code ICD Code Onset Dates Problem Status W/U Status Risk Notes Problem Malaise and fatigue (661365275) Other malaise and fatigue (780.79) 02/04/20 12 Active confirmed Problem Headache (76585378) HEADACHE (784.0) 02/04/20 12 Active confirmed Problem Staphylococcus aureus infection (045338419) Unspecified staphylococcus infection in conditions classified elsewhere and of unspecified site (041.10) 02/04/20 12 Active confirmed Encounters Encounter Location Date Provider Diagnosis [facility] [address] [place] [address] [address] [place] [address] 02/16/2025 Provider Migration [address] [place] [address] 02/17/2025 Provider Migration Plan Of Treatment No Information Insurance Providers Payer Name Payer Address Payer Phone Subscriber Number Group Number Insured Name Patient Relationship to Insured Coverage Start Date Coverage End Date [employer] [address] [place], [place] [id number] Tamara Mendiola Self - patient is the insured 2
--- OUTSIDE RECORDS SUMMARY | 2025-06-27 10:50 | XMS_ITS | Patient Health Record ---
Author Organization [facility] Address [address] [facility] [address] [place] [address] Care Team Providers Care Plant Protection Officer Name Role Phone CRISTEL BRAGA Unavailable [phone] Precious Mehta Unavailable Unavailable Allergies No Known Allergies Reason For Referral No Information Medications Medication SIG (Take, Route, Frequency, Duration) Notes Start Date End Date Status Ciclopirox 8 % Solution External; Durati on: 30 Days Active Terbinafine HCl 250 MG Tablet Oral; Duration: 24 Days Acti ve Social History Tobacco Use: Social History Observation Description Date Details (start date - stop date) Never Smoker NA - NA Social History Drugs/Alcohol: Social Info Question Answer Notes Drugs Have you used drugs other than those for medical reasons in the past 12 months? No Tobacco Use: Social Info Question Answer Notes Tobacco Use/Smoking Tobacco use: nonsmoker Additional Details Category Social Info Options Details Drugs/Alcohol: Do you drink alcohol? Yes, Socially Problems Problem Type SNOMED Code ICD Code Onset Dates Problem Status W/U Status Risk Notes Problem Chronic pain syndrome (858417424) Chronic pain syndrome (G89.4) Active confirmed Problem Lumbosacral spondylosis without myelopathy (75639534) Spondylosis without myelopathy or radiculopathy, lumbar region (M47.816) Active confirmed Plan Of Treatment Pending Test Test Name Order Date New Patient UDS 08/02/2022 Future Test Test Name Order Date 29684 Lumbar MBB 2nd joint level 022 28874 Lumbar Medial Branch Block 1st rafita nt level 08/03/2022 Insurance Providers Payer Name Payer Address Payer Phone Subscriber Number Group Number Insured Name Patient Relationship to Insured Coverage Start Date Coverage End Date [employer] [address] [place], [place] [id number] Self - patient is the insured 1 Medical (General) History Medical History History ICD Code asthma - mild intermittent Surgical History Surgery Date(Month/Year) tonsillectomy 2008
--- OUTSIDE RECORDS SUMMARY | 2025-06-27 10:50 | XMS_ITS | Patient Health Record ---
Author Organization [facility] Billing Info Address [address] [place] [address] Drshamar [place] [address] Care Team Providers Care Tomography Technologist Name Role Phone Hunter Fish Primary Care Provider Unavailab MARCELLE Ba Unavailable [phone] Reason For Referral No Information Medications Medication [...] Insured Coverage Start Date Coverage End Date [facility] [address] [address] [place], [place] [id number] Tamara Mendiola Self - patient is the insured 1 Medical (General) History Medical History History ICD Code Onychomycosis Pure Hyperglyceridemia Obesity Allergic Rhinitis Asthma Urinary Disorder Sleep Disorder Urinary Incontinence HPV Pelvic and Perineal Pain Surgical History Surgery Date(Month/Year) Tonsillectomy Hospitalization History Reason Date(Month/Year) See Notes
--- OUTSIDE RECORDS SUMMARY | 2025-06-27 10:50 | XMS_ITS | Patient Health Record ---
Author Organization [facility] Address [address] [place] [address], [address] [place] [address] Support Name Relationship Address Phone JACOBY FELTON Guarantor Unknown [phone] Reason For Referral No Information Plan Of Treatment No Information
== END 2025-06-27 09:58 | disposition home or self-care (01) ==
LOC: HO.HMCH 09:20
DX: J45.20 Mild intermittent asthma, uncomplicated (principal); R73.03 Prediabetes; E78.5 Hyperlipidemia, unspecified; S83.242D Other tear of medial meniscus, current injury, left knee, subsequent encounter; M17.11 Unilateral primary osteoarthritis, right knee; Z87.42 Personal history of other diseases of the female genital tract; Z90.49 Acquired absence of other specified parts of digestive tract

== ENCOUNTER → 2025-06-27 09:19 | Outpatient (BNVA) | payer OTHER, SELFPAY | DX: R73.03 Prediabetes (principal); J45.909 Unspecified asthma, uncomplicated; M17.0 Bilateral primary osteoarthritis of knee; E78.00 Pure hypercholesterolemia, unspecified; J45.20 Mild intermittent asthma, uncomplicated; E78.5 Hyperlipidemia, unspecified; S83.242D Other tear of medial meniscus, current injury, left knee, subsequent encounter; S83.241D Other tear of medial meniscus, current injury, right knee, subsequent encounter; X58.XXXD Exposure to other specified factors, subsequent encounter; Z90.49 Acquired absence of other specified parts of digestive tract; Z87.42 Personal history of other diseases of the female genital tract; Z79.899 Other long term (current) drug therapy | CPT/HCPCS: 99202 ==

== ENCOUNTER 2025-07-08 13:12 | Outpatient (AMB) | payer OTHER, SELFPAY ==
[2025-07-08 13:21] VITALS: BMI 38.1
--- NOTE | 2025-07-08 13:21 | A.OFFVIS_ITS ---
Vital Signs 07/08/25 13:21 Height 5 ft 9 in Weight 258 lb BMI 38.1 Intake Visit Reasons: Bilateral Flat Feet Intake Note: Tamara is a 35 year old female who presents today as a new patient for an evaluation of her Bilateral flat foot. She mentions pain is located on the plantar aspect of her feet and notes pain is worse on her right foot vs her left. when she moves her right ankle she feels a popping sensations and her pain worsens with long period of standing. Patient reports she has not tried any treatment for her foot and ankle pain and no recent imaging. She states she has been taking ibuprofen for her pain but found no relief. patient would like to discuss orthotics Allergies No Known Allergies Allergy (Verified 07/08/25 13:21) Medication List - Last Reconciled 07/08/25 by Haylee Shen DPM albuterol sulfate 90 mcg/actuation 2 puffs inhalation QID PRN 30 days celecoxib (Celebrex) 200 mg PO DAILY PRN drospirenone (contraceptive) (Slynd) 4 mg PO DAILY magnesium oxide 500 mg PO DAILY HPI Comments Details: The patient is a 35-year-old female with a past medical history as seen below presenting with bilateral foot pain, primarily in the arch and right ankle, exacerbated by prolonged standing and walking. The patient reports pain in the arch of bilateral feet, which worsens after standing for long periods. She describes the pain as occurring in the arch and sometimes radiating to the ankle, with the right side being more affected. The right ankle occasionally clicks or pops, especially on rotation, but there is no history of recent injury. The patient recalls a history of knee sprains during elementary school, which were not medically evaluated at the time. She has been diagnosed with arthritis in her knees. The patient has been prescribed Celebrex for knee arthritis, which she takes once daily with some relief. She denies any other pedal concerns. She denies any current nausea, vomiting, fever, or chills. [facility] Medical History (Updated 07/09/25 @ 07:56 by Haylee Shen DPM) Plantar fasciitis, bilateral Bilateral foot pain Right ankle pain Hx of endometriosis [place] Asthma Osteoarthritis Left knee pain Surgical History Hx laparoscopic cholecystectomy (05/20/25) Hx of tonsillectomy (1998) Family History Mother Asthma Father HTN (hypertension) Paternal Grandmother Osteoporosis Maternal Grandfather Diabetes mellitus Maternal Grandmother Diabetes mellitus Paternal Grandmother Alzheimer's dementia Social History Household Members: Significant Other Housing: House Are you a primary neonatal intensive care nurse to a significant other at home: No Do you presently have visiting nurse or other home services: No Comment: n/a Patient Tobacco Use Status: Former Tobacco user Tobacco use type: Cigarette Second Hand Smoke Exposure: No Substance Use Type: Marijuana Review of Systems Const Details: - Musculoskeletal: Reports pain in bilateral arches and right ankle, occasional clicking in the right ankle, denies recent injury. - Musculoskeletal: Reports knee arthritis, managed with Celebrex All systems reviewed & are unremarkable except as noted in HPI and below Physical Exam Vital Signs: BMI result Body Mass Index 38.1 Extrem Other: Bilateral lower extremity focused physical exam: Derm: No open lesions abrasions or wounds noted. No clinical signs of infection. No ecchymosis or discoloration noted. Skin supple and turgor within normal limits. No maceration noted. Vascular: DP/PT pulses palpable. Capillary refill time less than 3 seconds. Which are gradient warm to warm. Pedal hair absent. No varicosities noted. No edema noted. Neuro: Protective sensation is grossly intact. MSK: Minimal on palpation to bilateral feet in the plantar aspect of the calcaneus along the medial calcaneal tubercle radiating towards the medial arch. Range of motion of the forefoot hindfoot and ankles within normal limits without pain. MMT 5/5. No crepitus noted. Collapse of arches noted upon weight-bearing. Mildly antalgic gait noted unassisted. Negative windlass mechanism. Results Reviewed Results Reviewed: Ordered bilateral foot three views weightbearing and right ankle three views weight-bearing x-rays to be performed prior to next visit. Assessment & Plan Assessment & Plan (1) Right ankle pain: Code(s): M25.571 - Pain in right ankle and joints of right foot Category: Medical Qualifiers: Chronicity: unspecified Qualified Code(s): M25.571 - Pain in right ankle and joints of right foot (2) Bilateral pes planus: Code(s): M21.41 - Flat foot [pes planus] (acquired), right foot; M21.42 - Flat foot [pes planus] (acquired), left foot Category: Medical (3) Plantar fasciitis, bilateral: Code(s): M72.2 - Plantar fascial fibromatosis Category: Medical (4) Bilateral foot pain: Code(s): M79.671 - Pain in right foot; M79.672 - Pain in left foot Category: Medical Plan Patient was informed and verbally consented to the use of an ambient scribe for clinic note documentation during this visit. I discussed with the patient the likelihood of plantar fasciitis due to location of pain in the arches, as well as flat feet. We reviewed the importance of supportive footwear and orthotics to alleviate symptoms. I explained the potential findings on x-rays, such as bone spurs, and the rationale for obtaining them. We also discussed the use of Celebrex for knee arthritis and the possibility of switching to meloxicam or Medrol Dosepak if pain persists and once doses completed. 1. B/L Pes planus, plantar fasciitis, & Right ankle pain - Ordered x-rays for bilateral feet and the right ankle to be obtained prior to next visit. - Advised use of [id number]-cav-uoowilv orthotics, such as Superfeet, to provide arch support. - recommended avoiding walking barefoot and using supportive footwear. - Recommend plantar fascial stretching exercises for pain relief (provided patient with stretching exercise information form). - Continue Celebrex as needed for pain and may consider meloxicam or Medrol Dosepak if pain persists. Patient is to return to the office in 2 weeks for re-evaluation. Orders: Orders XR Foot Russell 3V 07/08/25 M21.41 - Flat foot [pes planus] (acquired), right foot, M21.42 - Flat foot [pes planus] (acquired), left foot, M25.571 - Pain in right ankle and joints of right foot, M79.671 - Pain in right foot, M79.672 - Pain in left foot XR ankle RT min 3V 07/08/25 M25.571 - Pain in right ankle and joints of right foot Coding Level of Care Code New Pt Level 4 (71009) Diagnoses Right ankle pain, unspecified chronicity M25.571 Chronicity: unspecified Bilateral pes planus M21.41; M21.42 Plantar fasciitis, bilateral M72.2 Bilateral foot pain M79.671; M79.672 Time Spent (min) 53
--- OUTSIDE RECORDS SUMMARY | 2025-07-08 14:34 | XMS_ITS | Patient Health Record ---
Author Organization [facility] Address [address] [place] [address], [address] [place] [address] Support Name Relationship Address Phone JACOBY FELTON Guarantor Unknown [phone] Reason For Referral No Information Plan Of Treatment No Information
--- OUTSIDE RECORDS SUMMARY | 2025-07-08 14:34 | XMS_ITS | Patient Health Record ---
Author Organization [facility] Address [address] [facility] [address] [place] [address] Care Team Providers Care Hand Tube Bender Name Role Phone AlonJesus terry Primary Care Provider Unavailabl e Migration, Provider Unavailable Unavailable Reason For Referral No Information Social History Social History Additional Details Category Social Info Options Details Social History Migrated Social History Alcohol history:Never drinks alcohol , Tobacco history:Former Smoker Problems Problem Type SNOMED Code ICD Code Onset Dates Problem Status W/U Status Risk Notes Problem Malaise and fatigue (754954794) Other malaise and fatigue (780.79) 02/04/20 12 Active confirmed Problem Headache (13078844) HEADACHE (784.0) 02/04/20 12 Active confirmed Problem Staphylococcus aureus infection (701374481) Unspecified staphylococcus infection in conditions classified elsewhere and of unspecified site (041.10) 02/04/20 12 Active confirmed Encounters Encounter Location Date Provider Diagnosis [facility] [address] [place] [address] [address] [place] [address] 02/16/2025 Provider Migration [address] [place] [address] 02/17/2025 Provider Migration Plan Of Treatment No Information Insurance Providers Payer Name Payer Address Payer Phone Subscriber Number Group Number Insured Name Patient Relationship to Insured Coverage Start Date Coverage End Date C[employer] [address] [place], [place] [id number] [phone] [id number] Tamara Mendiola Self - patient is the insured 2
--- OUTSIDE RECORDS SUMMARY | 2025-07-08 14:34 | XMS_ITS | Patient Health Record ---
Author Organization [facility] Address [address] [facility] [address] [place] [address] Care Team Providers Care Medical Equipment Sales Name Role Phone CRISTEL BRAGA Unavailable [phone] Precious Mehta Unavailable Unavailable Allergies No Known [...] Status Risk Notes Problem Chronic pain syndrome (029484998) Chronic pain syndrome (G89.4) Active confirmed Problem Lumbosacral spondylosis without myelopathy (47503424) Spondylosis without myelopathy or radiculopathy, lumbar region (M47.816) Active confirmed Plan Of Treatment Pending Test Test Name Order Date New Patient UDS 08/02/2022 Future Test Test Name Order Date 35527 Lumbar MBB 2nd joint level 022 81036 Lumbar Medial Branch Block 1st rafita nt level 08/03/2022 Insurance Providers Payer Name Payer Address Payer Phone Subscriber Number Group Number Insured Name Patient Relationship to Insured Coverage Start Date Coverage End Date [employer] [address] [place], [place] [id number] Self - patient is the insured 1 Medical (General) History Medical History History ICD Code asthma - mild intermittent Surgical History Surgery Date(Month/Year) tonsillectomy 2008
--- OUTSIDE RECORDS SUMMARY | 2025-07-08 14:34 | XMS_ITS | Patient Health Record ---
Author Organization [facility] Address [address] [place] [address] [place] [address] Care Team Providers Care Security Incident Response Engineer Name Role Phone Hunter Fish Primary Care Provider Unavailab MARCELLE Ba Unavailable [phone] Reason For Referral No Information Medications Medication [...] Insured Coverage Start Date Coverage End Date [facility] [address] [address] [place], [place] [id number] Tamara Mendiola Self - patient is the insured 1 Medical (General) History Medical History History ICD Code Onychomycosis Pure Hyperglyceridemia Obesity Allergic Rhinitis Asthma Urinary Disorder Sleep Disorder Urinary Incontinence HPV Pelvic and Perineal Pain Surgical History Surgery Date(Month/Year) Tonsillectomy Hospitalization History Reason Date(Month/Year) See Notes
== END 2025-07-08 13:41 | disposition home or self-care (01) ==
LOC: HO.HPODS 13:13
PROVIDERS: Visit Provider Student in an Organized Health Care Education/Training Program
DX: M25.571 Pain in right ankle and joints of right foot (principal); M21.41 Flat foot [pes planus] (acquired), right foot; M21.42 Flat foot [pes planus] (acquired), left foot; M72.2 Plantar fascial fibromatosis; M79.671 Pain in right foot; M79.672 Pain in left foot
CPT/HCPCS: 99204

== ENCOUNTER 2025-07-13 07:56 | Outpatient (REF) | payer OTHER, SELFPAY ==
--- NOTE | ~2025-07-13 | XR_ITS ---
CLINICAL HISTORY: M25.571 - Pain in right ankle and joints of right foot --- Additional Notes or Special Instructions: Weightbearing please 3 views right ankle Comparison: None Findings: No fractures, subluxations or dislocations. Ankle mortise intact. Normal plafond. No osteochondral lesions. Calcaneus and subtalar joint intact. No significant arthritic change. No plantar calcaneal spur. Posterior calcaneal enthesophyte. Minimal spurring distal fibular head Normal bone mineralization and soft tissues. Normal pre-Achilles fat pad. No radiopaque foreign body. Impression: 1. No acute osseous abnormality or significant degenerative changes. This document has been electronically signed by: Wiley Enriquez MD on 07/15/2025 16:00:59
--- NOTE | ~2025-07-13 | XR_ITS ---
CLINICAL HISTORY: M79.671 - Pain in right foot --- Additional Notes or Special Instructions: Weightbearing please Three views of each foot Comparison: None Findings: Right foot: Bones intact. No dislocations. No significant loss of joint space, osteophytes, or erosions. No ankle effusion. No radiopaque foreign body. Left foot: Bones intact. No dislocations. No significant loss of joint space, osteophytes, or erosions. No ankle effusion. No radiopaque foreign body. IMPRESSION: 1. No acute findings. 2. No significant degenerative change bilaterally. This document has been electronically signed by: Zoltan Pope MD on 07/16/2025 11:10:53
--- OUTSIDE RECORDS SUMMARY | 2025-07-13 07:59 | XMS_ITS | Patient Health Record ---
Author Organization [facility] Address [address] [place] [address] [place] [address] Care Team Providers Care Plant Control Aide Name Role Phone Joann Fisho Primary Care Provider Unavailab aidee MARCELLE FULLRE Unavailable [phone] Reason For Referral No Information Medications Medication [...] directed Orally Active Vitamin D 50 MCG (1999) 1 tablet Oral ly Once a day for 30 day(s) Active Vitamin C 500 MG as directed Orally Active Plan Of Treatment No Information Insurance Providers Payer Name Payer Address Payer Phone Subscriber Number Group Number Insured Name Patient Relationship to Insured Coverage Start Date Coverage End Date [facility] [address] [address] [place], [place] [id number] Tamara Mendiola Self - patient is the insured 1 Medical (General) History Medical History History ICD Code Onychomycosis Pure Hyperglyceridemia Obesity Allergic Rhinitis Asthma Urinary Disorder Sleep Disorder Urinary Incontinence HPV Pelvic and Perineal Pain Surgical History Surgery Date(Month/Year) Tonsillectomy Hospitalization History Reason Date(Month/Year) See Notes
--- OUTSIDE RECORDS SUMMARY | 2025-07-13 07:59 | XMS_ITS | Patient Health Record ---
Author Organization [facility] Address [address] [facility] [address] [place] [address] Care Team Providers Care Combat Information Center Officer Name Role Phone CRISTEL BRAGA Unavailable [phone] Precious Mehta Unavailable Unavailable Allergies No Known [...] Status Risk Notes Problem Chronic pain syndrome (794901224) Chronic pain syndrome (G89.4) Active confirmed Problem Lumbosacral spondylosis without myelopathy (85865708) Spondylosis without myelopathy or radiculopathy, lumbar region (M47.816) Active confirmed Plan Of Treatment Pending Test Test Name Order Date New Patient UDS 08/02/2022 Future Test Test Name Order Date 20128 Lumbar MBB 2nd joint level 022 89492 Lumbar Medial Branch Block 1st rafita nt level 08/03/2022 Insurance Providers Payer Name Payer Address Payer Phone Subscriber Number Group Number Insured Name Patient Relationship to Insured Coverage Start Date Coverage End Date [employer] [address] [place], [place] [id number] Self - patient is the insured 1 Medical (General) History Medical History History ICD Code asthma - mild intermittent Surgical History Surgery Date(Month/Year) tonsillectomy 2008
--- OUTSIDE RECORDS SUMMARY | 2025-07-13 07:59 | XMS_ITS | Patient Health Record ---
Author Organization [facility] Address [address] [facility] [address] [place] [address] Care Team Providers Care Senior Credit Officer Name Role Phone AlonJesus terry Primary Care Provider Unavailabl e Migration, Provider Unavailable Unavailable Reason For Referral No Information Social History Social History Additional Details Category Social Info Options Details Social History Migrated Social History Alcohol history:Never drinks alcohol , Tobacco history:Former Smoker Problems Problem Type SNOMED Code ICD Code Onset Dates Problem Status W/U Status Risk Notes Problem Malaise and fatigue (068771233) Other malaise and fatigue (780.79) 02/04/20 12 Active confirmed Problem Headache (34168760) HEADACHE (784.0) 02/04/20 12 Active confirmed Problem Staphylococcus aureus infection (788308381) Unspecified staphylococcus infection in conditions classified elsewhere and of unspecified site (041.10) 02/04/20 12 Active confirmed Encounters Encounter Location Date Provider Diagnosis [facility] [address] [place] [address] [address] [place] [address] 02/16/2025 Provider Migration [address] [place] [address] 02/17/2025 Provider Migration Plan Of Treatment No Information Insurance Providers Payer Name Payer Address Payer Phone Subscriber Number Group Number Insured Name Patient Relationship to Insured Coverage Start Date Coverage End Date C[employer] [address] [place], [place] [id number] Tamara Mendiola Self - patient is the insured 2
--- OUTSIDE RECORDS SUMMARY | 2025-07-13 07:59 | XMS_ITS | Patient Health Record ---
Author Organization [facility] Address [address] [place] [address], [address] [place] [address] Support Name Relationship Address Phone JACOBY FELTON Guarantor Unknown [phone] Reason For Referral No Information Plan Of Treatment No Information
[2025-07-13 08:12] LABS: MANUAL DIFF FLAG NO
[2025-07-13 09:21] LABS: Hematocrit 39.5 % (37.0-47.0); Hemoglobin 13.2 g/dl (12.0-16.0); Imm Gran Abs Auto 0.03 X10*3/uL (0.00-0.03); Imm Gran Pct Auto 0.3 % (0.0-0.4); Lymphocytes Absolute Auto 2.3 X10*3/uL (1.2-4.9); Mean Corpuscular HGB Conc 33.4 g/dl (31.0-35.0); Mean Corpuscular Hemoglobin 26.7 pg (27.0-33.0); Mean Corpuscular Volume 79.8 fL (80.0-98.0); NRBC Abs Auto 0.000 X10*3/uL (0.0-0.012); NRBC Pct Auto 0.0 /100WBC (0.0-0.2); Platelet Count 247 X10*3/uL (160-400); Red Blood Count 4.95 X10*6/uL (4.20-5.50); White Blood Count 9.2 X10*3/uL (4.8-10.8)
[2025-07-13 09:34] LABS: Appearance Urine Clear; Glucose Urine UA Negative (Negative); PH 6.5 (5.0-9.0); Specific Gravity - Urine 1.025 (1.005-1.025); UMIC TRIGGER UACC YES
[2025-07-13 09:40] LABS: UACC Culture Trigger YES
[2025-07-13 10:24] LABS: Alanine Aminotransferase 27 U/L (0-31); Albumin Level 4.0 g/dL (3.5-5.0); Alkaline Phosphatase 49 U/L (39-117); Anion Gap 10 (12-20); Aspartate Amino Transferase 24 U/L (5-31); Blood Urea Nitrogen 15 mg/dL (9-16); Calcium 8.8 mg/dL (8.4-10.2); Carbon Dioxide 23 mmol/L (22-29); Chloride 108 mmol/L (96-108); Cholesterol 140 mg/dL (<200); Estimated Glomerular Filt Rate > 60; HDL Cholesterol 33 mg/dL (>40); Potassium 4.3 mmol/L (3.3-5.1); Sodium 137 mmol/L (135-145); Total Protein 6.6 g/dL (6.5-8.0); Triglycerides 116 mg/dL (<150)
== END 2025-07-13 07:57 | disposition home or self-care (01) ==
LOC: HO.XRAY 07:56
PROVIDERS: Absent Provider Student in an Organized Health Care Education/Training Program
DX: Z00.00 Encounter for general adult medical examination without abnormal findings (principal); R73.03 Prediabetes; E78.5 Hyperlipidemia, unspecified; M79.671 Pain in right foot; M79.672 Pain in left foot; M21.41 Flat foot [pes planus] (acquired), right foot; M21.42 Flat foot [pes planus] (acquired), left foot; M25.571 Pain in right ankle and joints of right foot
CPT/HCPCS: 36415; 73610; 73630; 80053; 80061; 81001; 82306; 83036; 84443; 85025; 87086

== ENCOUNTER → 2025-07-13 08:16 | Outpatient (BNV) | payer OTHER, SELFPAY | PROVIDERS: Absent Provider Student in an Organized Health Care Education/Training Program; Visit Provider Radiology Diagnostic Radiology | DX: M79.671 Pain in right foot (principal); M79.672 Pain in left foot | CPT/HCPCS: 73630 ==

== ENCOUNTER 2025-08-07 19:38 | Emergency (ER) | payer OTHER, MEDICAID, SELFPAY ==
--- NOTE | ~2025-08-07 | XR_ITS ---
CLINICAL HISTORY: sob 2 view chest x-ray Comparison: None provided Findings: No consolidation, pneumothorax, or pleural effusion accounting for artifacts. Cardiac silhouette and mediastinal contours are within limits of normal. No acute fracture. IMPRESSION: No consolidation. This document has been electronically signed by: Reji Vieira MD on 08/07/2025 20:29:25
[2025-08-07 19:39] VITALS: BP 157/86; PULSE 98; RESP 22; TEMP 36.6; O2SAT 96; BMI 39.3
--- NOTE | 2025-08-07 19:42 | ED_ITS ---
HPI - General Adult General Chief complaint: Dyspnea Stated complaint: asthma/sob Time Seen by Provider: 08/07/25 21:02 Source: patient Mode of arrival: ambulatory Limitations: no limitations History of Present Illness ED Provider: Dr. Tata Moreno HPI narrative: Patient comes to the emergency room complaining of asthma exacerbation. Patient states that for the last 4 days she has been having URI symptoms including nasal congestion, which usually triggers her asthma. Patient states that she went to urgent care today, they did not have an x-ray tech and therefore she was asked to come to the emergency room. Patient denies fever, denies nausea vomiting or diarrhea. Related Data Home Medications ?Medication ?Instructions ?Recorded ?Confirmed drospirenone (contraceptive) 4 mg 4 mg PO DAILY 07/08/25 (28) tablet (Slynd) magnesium oxide 500 mg capsule 500 mg PO DAILY 5 07/08/25 Previous Rx's ?Medication ?Instructions ?Recorded albuterol sulfate 90 mcg/actuation 2 puff inhalation Q ID PRN 09/25/24 aerosol inhaler shortness of breath or wheez ing 30 days #8.5 grams celecoxib 200 mg capsule (Celebrex) 200 mg PO DAILY AL N pain #30 caps 04/24/25 hydrocortisone 1 % topical cream 1 appl AL DAILY #28.4 grams 08/01/25 with perineal applicator polyethylene glycol 3350 17 17 g PO DAILY #238 grams 1 gram/dose oral powder (Miralax) sennosides 8.6 mg tablet (senna) 17.2 mg (2 x 8.6 mg) PO BEDTIME 08/01/25 PRN constipation #30 tabs fluticasone propionate 50 1 spray intranasal DAILY #16 grams 08/07/25 mcg/actuation nasal spray,suspension (Flonase Allergy Relief) prednisone 50 mg tablet 50 mg PO DAILY #4 tabs 08/07 Allergies Allergy/AdvReac Type Severity Reaction Status Date / Time No Known Allergies Allergy Verified 08/07/25 19:39 Review of Systems Review of Systems: Constitutional : No Weight loss, No Fever, No Chills, No Night Sweats, No Fatigue, No Malaise ENT/Mouth : No Hearing loss, No Ear Pain, No Nasal Congestion, No Sinus Pain, No Hoarseness, No sore throat, No Rhinorrhea, No Swallowing Difficulty Eyes: No Eye Pain, No Swelling, No Redness, No Foreign Body, No Discharge, No Vision Changes Cardiovascular : No Chest Pain, No SOB, No Dyspnea on Exertion, No Orthopnea, No Edema, No Palpitations Respiratory : Complaining of cough, wheezing and shortness of breath with wheezing but not at this time Gastrointestinal : No Nausea, No Vomiting, No Diarrhea, No Constipation, No abdominal Pain, No Hematochezia, No Melena Genitourinary : no irregular bleeding, No Dysuria, No Urinary Frequency, No Hematuria, No Urinary Incontinence, No Urgency, No Flank Pain, No Urinary Flow Changes, No Hesitancy Musculoskeletal : No joint pain, No Myalgias, No Joint Swelling Skin : No Skin Lesions, No rash Neuro : No Weakness, No Numbness, No Paresthesias, No Loss of Consciousness, No Dizziness, No Headache Psych : No Anxiety/Panic, No Depression, No SI/HI/AH/VH, No Social Issues, Heme/Lymph: No Bruising, No Bleeding,No Lymphadenopathy Endocrine : No Polyuria, No Polydipsia, No Temperature Intolerance PMFSH Past Medical History Medical History Plantar fasciitis, bilateral Bilateral foot pain Right ankle pain Hx of endometriosis Snores Asthma Osteoarthritis Left knee pain Surgical History Hx laparoscopic cholecystectomy (05/20/25) Hx of tonsillectomy (1998) Family History Family History Mother Asthma Father HTN (hypertension) Paternal Grandmother Osteoporosis Maternal Grandfather Diabetes mellitus Maternal Grandmother Diabetes mellitus Paternal Grandmother Alzheimer's dementia Social History Social History Household Members: Significant Other Housing: House Are you a primary technical healthcare consultant to a significant other at home: No Do you presently have visiting nurse or other home services: No Comment: n/a Patient Tobacco Use Status: Former Tobacco user Tobacco use type: Cigarette Smoked in Last 30 Days: No Second Hand Smoke Exposure: No Use of substances other than those prescribed or required for medical reasons: No Substance Use Type: Marijuana Advance Directives: No Advance Directives Information Provided: No Patient : No Physical Exam ED Exam Exam: Appearance: Alert. Oriented X3. No acute distress. Eyes: Pupils equal, round and reactive to light. ENT: Pharynx normal. Patient does have nasal congestion Neck: Normal inspection. Neck supple. No lymph nodes noted. No crepitus CVS: Normal heart rate and rhythm. Pulses normal. Normal S1 and S2 Respiratory: No respiratory distress. Speaking in full sentences, Breath sounds normal. No Wheezing. No rales Abdomen: Soft and nontender. No rigidity. No distention. Skin: Skin warm and dry. Normal skin color. Normal skin turgor. Extremities: No lower extremity edema. No Lacerations. No Rash Neuro: Oriented X 3. No motor deficit. No sensory deficit. Moving all extremities. No slurred speech. CN 2 through 12 grossly intact Psych: calm, cooperative, normal affect Vital Signs: Vital Signs - 24 hr 08/07/25 19:39 08/07/25 20:25 Temperature 97.9 F Pulse Rate 98 98 Respiratory Rate 22 H 22 H Blood Pressure 157/86 H Pulse Oximetry 96 Oxygen Delivery Method Room Air BMI result Body Mass Index 39.3 Course Course Course Narrative: 35-year-old female history of asthma presented hospital from urgent care for shortness of breath. Attempted DuoNeb treatment at home also received 1 DuoNeb treatment at urgent care. However still appears to be short of breath. Does have temporary relief. Patient states she has been coughing more. Sick contact with her daughter. COVID, flu swab, x-ray ordered. ED brown protocol ordered. We will plan to give patient a dose of p.o. prednisone. Rapid medical screening exam was performed. Patient stable at time of evaluation. Afua Arenas DO 08/07/251942 Medications Administered Discontinued Medications Generic Name Dose Route Start Last Admin Trade Name Freq PRN Reason Stop Dose Admin Albuterol Sulfate 2.5 mg/ 0 mg 08/07/25 20:15 08/07/25 20:24 Albuterol/Ipratropium 3 ml INHALE 08/07/25 20:16 1 dose ONCE ONE Administration Prednisone 50 mg 08/07/25 19:44 08/07/25 20:20 Prednisone 10 Mg Tablet PO 08/07/25 19:45 50 mg ONCE ONE Administration Medical Decision Making Medical Decision Making MDM Narrative: My interpretation of labs: Negative for influenza and COVID Chest x-ray does not show any acute abnormality Oxygen saturation 96 and above without oxygen desaturation. Patient was given p.o. Tylenol for a headache and also on arrival patient received a DuoNeb and p.o. prednisone At this time, patient isn't longer wheezing. Patient states that at home she used her inhaler at least 5 times before going to urgent care and between urgent care and coming to the ED she used it couple of more times. At this time, no wheezing and more albuterol is not indicated. Differential Diagnosis Differential Diagnoses: The differential diagnosis associated with the presentation includes (Viral URI, bronchitis, asthma exacerbation) Admission/Observation Consideration of admission/observation: Escalation of care including admission/observation considered (Given patient's multiple uses of her inhalers and shortness of breath, observation/admission was considered) Lab Data [facility] Lab Attestation statement: I reviewed the patient's lab results. Labs: Lab Results 08/07/25 Range/Units 19:47 COVID-19 (ROSEMARY) Negative (Negative) COVID-19 Clin Com See Note Influenza Type A (ADAM) Negative (Negative) Influenza Type B (ADAM) Negative (Negative) Influenza A & B Note See Note Independent Interpretation I performed an independent interpretation of an: Plain X-Ray Radiology Impression Discussion of test interpretation with radiology: I have reviewed the radiologist's reading. Radiologist Impression: No consolidation, pneumothorax, or pleural effusion accounting for artifacts. Cardiac silhouette and mediastinal contours are within limits of normal. No acute fracture. IMPRESSION: No consolidation Critical Care Time Critical Care Time Critical Care Time: Yes Total Critical Care Time: 35 Attestation: I have personally provided critical care time. Time includes review of lab data, radiology results, discussion with consultants, and monitoring for potential decompensation. Intervention performed as documented. Discharge Plan Discharge Clinical Impression: Viral URI, Asthma Patient Disposition: Home, Self-Care Instructions: Asthma (ED), Viral Syndrome (ED) Additional Instructions: Please follow-up with your primary care physician tomorrow. If you have any worsening or new symptoms, please return to the emergency room or call 911 Prescriptions: New prednisone 50 mg tablet 50 mg PO DAILY Qty: 4 0RF fluticasone propionate [Flonase Allergy Relief] 50 mcg/actuation spray,suspension 1 spray intranasal DAILY Qty: 16 0RF Rx Instructions: administer into each nostril No Action albuterol sulfate 90 mcg/actuation HFA aerosol inhaler 2 puff inhalation QID PRN (Reason: shortness of breath or wheezing) 30 Days Qty: 8.5 11RF sennosides [senna] 8.6 mg tablet 17.2 mg PO BEDTIME PRN (Reason: constipation) Qty: 30 0RF Rx Instructions: If no bowel movement x 2 days despite taking miralax polyethylene glycol 3350 [Miralax] 17 gram/dose powder 17 g PO DAILY Qty: 238 0RF hydrocortisone 1 % cream with perineal applicator 1 appl AL DAILY Qty: 28.4 0RF magnesium oxide 500 mg capsule 500 mg PO DAILY Slynd 4 mg (28) tablet 4 mg PO DAILY celecoxib [Celebrex] 200 mg capsule 200 mg PO DAILY PRN (Reason: pain) Qty: 30 3RF Stand Alone Forms: Work/School Release Print Language: Indonesian
[2025-08-07 20:07] LABS: COVID-19 Test Negative (Negative); IDNOW Serial# 55D5AD1C; IDNOW Serial# 58CA691E; Influenza B2 Negative (Negative)
[2025-08-07] MEDS: Albuterol Sulfate 2.5 MG, Albuterol/Iprat 2.5/0.5MG 3 ML 3 ML INHALE (20:24)
[2025-08-07 20:25] VITALS: PULSE 98; RESP 22; O2SAT 97
--- OUTSIDE RECORDS SUMMARY | 2025-08-07 20:32 | XMS_ITS | Clinical Summary ---
Author Organization [employer] Address [address] [place] [address] Care Team Providers Care Supervisor Drapery Hanging Name Role Phone Unavailable Primary Care Provider [...] Most Recently Relevant to Health Maintenance Insurance [facility] MEDICA[facility] STAND ADULT
[2025-08-07 22:11] VITALS: BP 142/82; PULSE 109; RESP 20; TEMP 36.7; O2SAT 98
== END 2025-08-07 22:13 | disposition home or self-care (01) ==
PROVIDERS: Student in an Organized Health Care Education/Training Program; Emergency Provider Emergency Medicine
DX: J06.9 Acute upper respiratory infection, unspecified (principal); J45.909 Unspecified asthma, uncomplicated; Z03.818 Encounter for observation for suspected exposure to other biological agents ruled out
CPT/HCPCS: 71046; 87502; 87635; 94640; 99284; 99285

== ENCOUNTER → 2025-08-07 19:44 | Outpatient (BNV) | payer OTHER, MEDICAID, SELFPAY | PROVIDERS: Emergency Provider Emergency Medicine; Visit Provider Radiology Neuroradiology | DX: R06.02 Shortness of breath (principal) | CPT/HCPCS: 71046 ==

== ENCOUNTER 2025-08-09 16:05 | Outpatient (AMB) | payer OTHER, SELFPAY ==
[2025-08-09 16:08] VITALS: BP 148/68; PULSE 109; RESP 18; TEMP 36.3; O2SAT 97; BMI 38.8
--- NOTE | 2025-08-09 16:08 | MHC.PC.OV ---
Vital Signs 08/09/25 16:08 Height 5 ft 8 in Weight 255 lb BMI 38.8 BP 148/68 H Blood Pressure Location Lt brachial Position Sitting Respiration 18 Pulse 109 H Pulse Source Pulse Oximeter Temp 97.3 F Temp Source Temporal Artery Scan Pulse Oximetry (%) 97 Oxygen Delivery Method Room Air Intake Visit Reasons: annual exam Umbrella Tipper Required: No Accompanied by: Self / Same As Patient Allergies No Known Allergies Allergy (Verified 08/09/25 16:17) Medication List - Last Reconciled 08/09/25 by ROYAL Yuan albuterol sulfate 90 mcg/actuation 2 puffs inhalation QID PRN 30 days celecoxib (Celebrex) 200 mg PO DAILY PRN drospirenone (contraceptive) (Slynd) 4 mg PO DAILY fluticasone propionate 50 mcg/actuation (Flonase Allergy Relief) 1 spray intranasal DAILY hydrocortisone 1% 1 appl [place] DAILY magnesium oxide 500 mg PO DAILY polyethylene glycol 3350 (Miralax) 17 grams PO DAILY prednisone 50 mg PO DAILY sennosides (senna) 17.2 mg (2 x 8.6 mg) PO BEDTIME PRN Tobacco use date assessed: 08/09/25 Dental Screening Dental Screen Date: 08/09/25 Did you have a dental visit in the last 12 months?: Yes Did you have a dental problem in the last 6 months where you did not have access to dental care?: No Was dental information given to patient?: Patient has dentist HPI annual exam HPI Details Dentist: up to date Eye: needs eye exam Snellen: Right: Left: Corrected vision: yes, glasses STI screening: Colonoscopy: Pap Smer: pap smear- earlier this year PHQ-9: Flu: took vaccine three weeks ago COVID:x 2 Tdap:9 years ago Diet:regular Exercise: no' The patient is a 35-year-old female presenting for annual physical Patient reports recent emergency room visit for an asthma exacerbation. She became sick on Tuesday, which triggered her asthma, and her symptoms progressively worsened over three days despite using her rescue inhaler. She went to the ER on Tuesday night, where she received three nebulizer treatments with ipratropium bromide and was prescribed prednisone 50 mg daily, which she has been taking and finds helpful. The ER also prescribed Flonase. Her asthma is typically triggered only by illness or allergies, such as contact with her dog, and is usually well-managed with her rescue inhaler. The patient also reports new-onset tingling in her hands, which can occur bilaterally. 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 She describes it as a Eddie horse feeling that is relieved with stretching exercises and is not associated with pain. Past medical history is notable for myopia, for which she wears glasses. Health maintenance is up-to-date with a Pap smear performed earlier this year and a flu vaccine received three weeks ago. Her last tetanus shot was approximately nine years ago during her , making her due for a booster next year. She follows a regular diet and does not exercise. She needs to have two wisdom teeth extracted. [facility] Medical History Plantar fasciitis, bilateral Bilateral foot pain Right ankle pain Hx of endometriosis Snores Asthma Osteoarthritis Left knee pain Surgical History Hx laparoscopic cholecystectomy (05/20/25) Hx of tonsillectomy (1998) Family History Mother Asthma Father HTN (hypertension) Paternal Grandmother Osteoporosis Maternal Grandfather Diabetes mellitus Maternal Grandmother Diabetes mellitus Paternal Grandmother Alzheimer's dementia Social History Household Members: Significant Other Housing: House Are you a primary career placement specialist to a significant other at home: No Do you presently have visiting nurse or other home services: No Comment: n/a Patient Tobacco Use Status: Former Tobacco user Tobacco use type: Cigarette Second Hand Smoke Exposure: No Substance Use Type: Marijuana Questionnaire Thrive Questionnaire Date Thrive assessed: 06/27/25 I am a: Patient What is your living situation today?: I have a steady place to live Within the past 12 months, did the food you bought not last and you didn't have the money to get more?: Never true Within the past 12 months, did you worry whether your food would run out before you got money to buy more?: Never true Do you have trouble paying for medicines?: Yes Do you have trouble getting transportation to medical appointments?: No Do you have trouble paying your heating and electricity bill?: No Do you have trouble taking care of your child, family member or friend?: No Do you have trouble with day-to-day activities such as bathing, preparing meals, shopping, managing finances, etc.?: No Are you currently unemployed and looking for a job?: No Are you interested in more education?: No Please select the resources that you would like help with: None Currently or been in a relationship where the following occur: No concerns reported THRIVE Score: 0 ANA-7 AMB Questionnaire ANA-7 Date ANA - 7 assessed: 06/27/25 Source: Developed by Drs. hCin Hidalgo, Shanel Pascual, Timothy Rangel and colleagues, with an educational kelsie from [employer]. Review of Systems Const Denies headache(s) Eyes Denies loss of vision ENT Denies vertigo, Denies dizziness, Denies headache(s) and Denies sore throat Card Denies chest pain, Denies leg edema and Denies lightheadedness Resp Denies cough, Denies hemoptysis and Denies wheezing GI Denies abdominal pain, Denies melena, Denies constipation, Denies diarrhea and Denies vomiting Denies urinary frequency, Denies dysuria and Denies urinary urgency Musc Reports arthralgias (bilateral hip, right ankle (intermittently)), Denies joint swelling, Denies numbness and Reports tingling (Fingers of bilateral hands) Skin/Breast Denies lesions and Denies rash Neuro Denies Abnormal speech present, Denies behavioral changes, Denies vertigo, Denies dizziness, Denies headache(s), Denies loss of vision, Denies memory loss, Denies numbness and Reports tingling (Fingers of bilateral hands) Psych Denies anxiety, Denies behavioral changes, Denies depression, Denies memory loss and Denies panic attacks Mendoza/Lymph Denies easy bleeding and Denies easy bruising Aller/Immun Denies wheezing Physical exam (Primary Care) Vital Signs: Last Vital Signs Temp 97.3 F 08/09/25 16:08 Pulse 109 H 08/09/25 16:08 Resp 18 08/09/25 16:08 BP 148/68 H 08/09/25 16:08 Pulse Ox 97 08/09/25 16:08 Oxygen Delivery Method Room Air 08/09/25 16:08 BMI result Body Mass Index 38.8 Tobacco/Smoking Status: Tobacco use Status Tobacco use date assessed 08/09/25 08/09/25 16:15 Patient Tobacco Use Status Former Tobacco user 08/09/25 16:15 Tobacco use type Cigarette 08/09/25 16:15 Thrive Assessment: Date of Thrive Assessment Date Thrive assessed 06/27/25 08/09/25 16:15 Currently or been in a relationship where the following occur: No concerns reported Const General: healthy appearing, no acute distress, alert and awake Nutritional Appearance: well nourished Orientation/consciousness: oriented to person, oriented to place and oriented to time HENMT Ears: TM's normal bilaterally General nose exam: Normal nasal mucous membranes and turbinates present Eyes Conjunctivae: conjunctivae normal Sclerae: sclerae normal Pupils: Equal, round and reactive pupils present Neck Neck: Yes no lymphadenopathy and Yes no JVD Thyroid: Thyroid normal Carotids: no bruits Resp Effort & Inspection: normal respiratory effort and not tachypneic Auscultation: no crackles, no rales, no rhonchi and no wheezes Cardio Rate: regular rate Rhythm: regular rhythm Heart sounds: no murmurs and normal S1 and S2 GI Palpation (GI): Soft to palpation, nontender, no hepatomegaly and no splenomegaly Auscultation: normal bowel sounds General: Yes no CVA tenderness Back/Spine/Pelvis Back: no CVA tenderness Skin General skin exam: no rashes or lesions noted and dry skin Neuro General: oriented to person, oriented to place and oriented to time Cranial nerves: Yes Equal, round and reactive pupils present Speech: No Abnormal speech present Gait exam (Neuro): Normal gait present Motor exam (neuro): no tremor noted Extrem Right upper extremity: full ROM Left upper extremity: full ROM Right lower extremity: full ROM, knee Details: swelling; no tenderness and ankle Details: no tenderness and no swelling Left lower extremity: full ROM and knee Details: swelling; no tenderness Psych Mental Status: mental status grossly normal Speech and movement: Normal speech and movement present Affect: normal affect Attitude: cooperative Thought process: Normal thought process present Results Reviewed Results Reviewed: Laboratory Tests 07/13/25 07/13/25 08:09 08:10 WBC 9.2 RBC 4.95 Hgb 13.2 Hct 39.5 MCV 79.8 L MCH 26.7 L MCHC 33.4 RDW 13.8 Plt Count 247 MPV 11.5 Sodium 137 Potassium 4.3 Chloride 108 Carbon Dioxide 23 Anion Gap 10 L BUN 15 Creatinine 0.85 Estimated GFR > 60 Fasting Glucose 93 Estimat Average Glucose 111 Hemoglobin A1c % 5.5 Calcium 8.8 Total Bilirubin 0.5 AST 24 ALT 27 Alkaline Phosphatase 49 Total Protein 6.6 Albumin 4.0 Triglycerides 116 Cholesterol 140 LDL Cholesterol, Calc 84 HDL Cholesterol 33 L 25-OH Vitamin D Total 33.2 TSH 1.22 Urine Color Yellow Urine Appearance Clear Urine pH 6.5 Ur Specific [place] 1.025 Urine Protein Negative Urine Glucose (UA) Negative Urine Ketones Negative Urine Blood Negative Urine Nitrite Negative Ur Leukocyte Esterase Moderate (2+) H Urine RBC 0-2 Urine WBC 6-10 H Ur Squamous Epith Cells 11-20 Urine Bacteria 3+ Hyaline Casts 0-2 Coding Level of Care Code Est Pt Prev Care 18-39y(94247) Diagnoses Annual physical exam Z00.00 Mild intermittent asthma without complication J45.20 Asthma complication type: uncomplicated Asthma persistence: intermittent Asthma severity: mild Prediabetes R73.03 Hyperlipidemia, unspecified hyperlipidemia type E78.5 Hyperlipidemia type: unspecified Tear of medial meniscus of left knee, unspecified tear type, unspecified whether old or current tear, subsequent encounter S83.242D Encounter type: subsequent encounter Meniscus tear of knee type: unspecified type Tear current or old: unspecified Osteoarthritis of right knee, unspecified osteoarthritis type M17.11 Osteoarthritis type: unspecified Hx of endometriosis Z87.42 S/P laparoscopic cholecystectomy Z90.49 Numbness and tingling in both hands R20.0; R20.2 Time Spent (min) 39 Assessment & Plan Assessment & Plan (1) Annual physical exam: Code(s): Z00.00 - Encounter for general adult medical examination without abnormal findings Category: Medical Plan: Preventative guidelines and recent labs reviewed with the patient. Had Pap smear earlier this year. Up-to-date on most her preventative screening except she eye exam. (2) Asthma: Comment: PRN inhaler Code(s): J45.909 - Unspecified asthma, uncomplicated Category: Medical Qualifiers: Asthma complication type: uncomplicated Asthma persistence: intermittent Asthma severity: mild Qualified Code(s): J45.20 - Mild intermittent asthma, uncomplicated Plan: The patient presented for follow-up of an acute asthma exacerbation that required an ER visit and treatment with systemic steroids. Her asthma appears to be triggered by illness and allergies rather than being persistent. A daily maintenance inhaler is not indicated at this time, but will be considered if exacerbations become more frequent. A prescription for albuterol solution for a home nebulizer will be provided, and an order for a new nebulizer machine will be sent to a [employer]. (3) Prediabetes: Code(s): R73.03 - Prediabetes Category: Medical Plan: Fasting glucose 93 and A1c 5.5% Reinforced low sugar/carbohydrate diet and activity as tolerated We will continue to monitor (4) HLD (hyperlipidemia): Code(s): E78.5 - Hyperlipidemia, unspecified Category: Medical Qualifiers: Hyperlipidemia type: unspecified Qualified Code(s): E78.5 - Hyperlipidemia, unspecified Plan: Recent labs revealed low HDL cholesterol. The patient has started taking omega-3 supplements again, which is an appropriate measure to help increase HDL levels. Lipid levels will be rechecked in three months to monitor progress. (5) Tear of medial meniscus of left knee: Code(s): S83.242A - Other tear of medial meniscus, current injury, left knee, initial encounter Category: Medical Qualifiers: Encounter type: subsequent encounter Meniscus tear of knee type: unspecified type Tear current or old: unspecified Qualified Code(s): S83.242D - Other tear of medial meniscus, current injury, left knee, subsequent encounter Plan: The patient has undergone a set of four injections to manage the meniscal tear, with ongoing evaluation of knee function. Further orthopedic consultation may be necessary if symptoms do not improve. (6) Osteoarthritis of right knee: Code(s): M17.11 - Unilateral primary osteoarthritis, right knee Category: Medical Qualifiers: Osteoarthritis type: unspecified Qualified Code(s): M17.11 - Unilateral primary osteoarthritis, right knee Plan: The patient has undergone a set of four injections to manage the meniscal tear, with ongoing evaluation of knee function. Further orthopedic consultation may be necessary if symptoms do not improve. (7) Hx of endometriosis: Code(s): Z87.42 - Personal history of other diseases of the female genital tract Category: Medical Plan: The patient is currently managed with contraceptives, which have reduced symptoms and cyst size. 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 (8) S/P laparoscopic cholecystectomy: Code(s): Z90.49 - Acquired absence of other specified parts of digestive tract Category: Surgical Plan: The patient reports satisfactory recovery post-cholecystectomy, with no significant complications. Monitoring of bowel habits will continue to ensure no further issues arise. (9) Numbness and tingling in both hands: Code(s): R20.0 - Anesthesia of skin; R20.2 - Paresthesia of skin Category: Medical Plan: The patient reports intermittent bilateral hand tingling, which raises suspicion for conditions such as carpal tunnel syndrome or a B12 deficiency. A B12 level will be checked via lab work, along with a nerve conduction study may be ordered to further evaluate for carpal tunnel syndrome. Orders: Orders NE nerve conduction velocity Today R20.0 - Anesthesia of skin, R20.2 - Paresthesia of skin NE electromyogram (EMG) Today R20.0 - Anesthesia of skin, R20.2 - Paresthesia of skin Vitamin B12 and Folate Today R20.0 - Anesthesia of skin, R20.2 - Paresthesia of skin CRP High Sensitivity Today R20.0 - Anesthesia of skin, R20.2 - Paresthesia of skin Erythrocyte Sedimentation Rate Today R20.0 - Anesthesia of skin, R20.2 - Paresthesia of skin Medications: New albuterol sulfate asthma worsen with illnesses: use nebulizer treatment as needed during these episodes 5 mg inhalation Q6H PRN 30 ea 3RF shortness of breath or wheezing J45.20 - Mild intermittent asthma, uncomplicated albuterol sulfate asthma worsen with illnesses: use nebulizer treatment as needed during these episodes 5 mg inhalation Q6H PRN 30 ea 3RF shortness of breath or wheezing J45.20 - Mild intermittent asthma, uncomplicated [Nebulizer Machine] As directed 1 ea 0RF J45.20 - Mild intermittent asthma, uncomplicated
--- OUTSIDE RECORDS SUMMARY | 2025-08-09 16:08 | XMS_ITS | Patient Health Record ---
Author Organization [facility] Address [address] [place] [address] Care Team Providers Care Icu Rn Name Role Phone AlonJesus terry Primary Care Provider Unavailabl e Migration, Provider Unavailable Unavailable Reason For Referral No Information Social History Social History Additional Details Category Social Info Options Details Social History Migrated Social History Alcohol history:Never drinks alcohol , Tobacco history:Former Smoker Problems Problem Type SNOMED Code ICD Code Onset Dates Problem Status W/U Status Risk Notes Problem Malaise and fatigue (619957132) Other malaise and fatigue (780.79) 02/04/20 12 Active confirmed Problem Headache (47584397) HEADACHE (784.0) 02/04/20 12 Active confirmed Problem Staphylococcus aureus infection (211220740) Unspecified staphylococcus infection in conditions classified elsewhere and of unspecified site (041.10) 02/04/20 12 Active confirmed Encounters Encounter Location Date Provider Diagnosis [facility] [address] [place] [address] [address] [place] [address] 02/16/2025 Provider Migration [address] [place] [address] 02/17/2025 Provider Migration Plan Of Treatment No Information Insurance Providers Payer Name Payer Address Payer Phone Subscriber Number Group Number Insured Name Patient Relationship to Insured Coverage Start Date Coverage End Date [employer] [address] [place], [place] [id number] Tamara Mendiola Self - patient is the insured 2
--- OUTSIDE RECORDS SUMMARY | 2025-08-09 16:08 | XMS_ITS | Patient Health Record ---
Author Organization [facility] Address [address] [facility] [address] [place] [address] Care Team Providers Care Wheel Filler Name Role Phone CRISTEL BRAGA Unavailable [phone] Precious Mehta Unavailable Unavailable Allergies No Known [...] Status Risk Notes Problem Chronic pain syndrome (860379952) Chronic pain syndrome (G89.4) Active confirmed Problem Lumbosacral spondylosis without myelopathy (23378499) Spondylosis without myelopathy or radiculopathy, lumbar region (M47.816) Active confirmed Plan Of Treatment Pending Test Test Name Order Date New Patient UDS 08/02/2022 Future Test Test Name Order Date 04716 Lumbar MBB 2nd joint level 022 11289 Lumbar Medial Branch Block 1st rafita nt level 08/03/2022 Insurance Providers Payer Name Payer Address Payer Phone Subscriber Number Group Number Insured Name Patient Relationship to Insured Coverage Start Date Coverage End Date [employer] [address] [place], [place] [id number] Self - patient is the insured 1 Medical (General) History Medical History History ICD Code asthma - mild intermittent Surgical History Surgery Date(Month/Year) tonsillectomy 2008
--- OUTSIDE RECORDS SUMMARY | 2025-08-09 16:08 | XMS_ITS | Clinical Summary ---
Author Organization [employer] Address [address] [place] [address] Care Team Providers Care Solid Waste Manager Name Role Phone Unavailable Primary Care Provider [...] Most Recently Relevant to Health Maintenance Insurance [facility] MEDICAID STAND ADULT
--- OUTSIDE RECORDS SUMMARY | 2025-08-09 16:08 | XMS_ITS | Patient Health Record ---
Author Organization [facility] Address [address] [place] [address] [place] [address] Care Team Providers Care Perioperative Assistant Name Role Phone Joann Fisho Primary Care Provider Unavailab aidee MARCELLE FULLER Unavailable [phone] Reason For Referral No Information Medications Medication [...] Start Date Coverage End Date [facility] [address] [address] [place], [place] [id number] Tamara Mendiola Self - patient is the insured 1 Medical (General) History Medical History History ICD Code Onychomycosis Pure Hyperglyceridemia Obesity Allergic Rhinitis Asthma Urinary Disorder Sleep Disorder Urinary Incontinence HPV Pelvic and Perineal Pain Surgical History Surgery Date(Month/Year) Tonsillectomy Hospitalization History Reason Date(Month/Year) See Notes
--- OUTSIDE RECORDS SUMMARY | 2025-08-09 16:08 | XMS_ITS | Patient Health Record ---
Author Organization [facility] Address [address] [place] [address], [address] [place] [id number] Support Name Relationship Address Phone JACOBY FELTON Guarantor Unknown [phone] Reason For Referral No Information Plan Of Treatment No Information
== END 2025-08-09 16:59 | disposition home or self-care (01) ==
LOC: HO.HMCH 16:06
DX: Z00.00 Encounter for general adult medical examination without abnormal findings (principal); J45.20 Mild intermittent asthma, uncomplicated; R73.03 Prediabetes; E78.5 Hyperlipidemia, unspecified; S83.242D Other tear of medial meniscus, current injury, left knee, subsequent encounter; M17.11 Unilateral primary osteoarthritis, right knee; Z87.42 Personal history of other diseases of the female genital tract; Z90.49 Acquired absence of other specified parts of digestive tract; R20.0 Anesthesia of skin; R20.2 Paresthesia of skin

== ENCOUNTER 2025-08-12 11:29 | Outpatient (AMB) | payer OTHER, SELFPAY ==
--- NOTE | 2025-08-12 11:36 | A.OFFVIS_ITS ---
Intake Visit Reasons: fu Bilateral Flat Feet Intake Note: Tamara is a 25 year old female who presents today for a follow up on her bilateral flat feet. During her last visit she was advised the use of over the counter orthotics and provided with an info sheet for stretching exercises. She states she has seen improvement since the last time she was here and she continues to take Celebrex PRN. X-ray results in patients chart Allergies No Known Allergies Allergy (Verified 08/12/25 11:38) Medication List - Last Reconciled 08/12/25 by Haylee Shen DPM albuterol sulfate 5 mg inhalation Q6H PRN albuterol sulfate 90 mcg/actuation 2 puffs inhalation QID PRN 30 days celecoxib (Celebrex) 200 mg PO DAILY PRN drospirenone (contraceptive) (Slynd) 4 mg PO DAILY fluticasone propionate 50 mcg/actuation (Flonase Allergy Relief) 1 spray intranasal DAILY hydrocortisone 1% 1 appl [place] DAILY lidocaine 5% 1 patch topical DAILY magnesium oxide 500 mg PO DAILY [Nebulizer Machine As directed] polyethylene glycol 3350 (Miralax) 17 grams PO DAILY sennosides (senna) 17.2 mg (2 x 8.6 mg) PO BEDTIME PRN HPI Comments Details: The patient is a 35-year-old female presenting for a follow up of B/L plantar fasciitis and pes planus. The patient states her symptoms have improved with the use of the OTC orthotics. Patient states she has not been doing the stretching exercises as much. Patient states she has not been taking the Celebrex due to the pain improving. The patient also experiences a burning sensation in the dorsum of the right foot. This sensation occurs intermittently. The right ankle continues to occasionally clicks, especially on rotation, but there is no history of recent injury. She denies any other pedal concerns. She denies any current nausea, vomiting, fever, or chills. COUNT INCLUDES THE [facility] Medical History (Updated 08/12/25 @ 12:01 by Haylee Shen DPM) Calcaneal spur of both feet Paresthesia of right foot Plantar fasciitis, bilateral Bilateral foot pain Right ankle pain Hx of endometriosis Snores Asthma Osteoarthritis Left knee pain Surgical History Hx laparoscopic cholecystectomy (05/20/25) Hx of tonsillectomy (1998) Family History Mother Asthma Father HTN (hypertension) Paternal Grandmother Osteoporosis Maternal Grandfather Diabetes mellitus Maternal Grandmother Diabetes mellitus Paternal Grandmother Alzheimer's dementia Social History Household Members: Significant Other Housing: House Are you a primary child care supervisor to a significant other at home: No Do you presently have visiting nurse or other home services: No Comment: n/a Patient Tobacco Use Status: Former Tobacco user Tobacco use type: Cigarette Second Hand Smoke Exposure: No Substance Use Type: Marijuana Review of Systems Const Details: - Musculoskeletal: Reports reduced pain in bilateral arches and right ankle, occasional clicking in the right ankle, denies recent injury. All systems reviewed & are unremarkable except as noted in HPI and below Physical Exam Extrem Other: Bilateral lower extremity focused physical exam: Derm: No open lesions abrasions or wounds noted. No clinical signs of infection. No ecchymosis or discoloration noted. Skin supple and turgor within normal limits. No maceration noted. Vascular: DP/PT pulses palpable. Capillary refill time less than 3 seconds. Which are gradient warm to warm. Pedal hair absent. No varicosities noted. No edema noted. Neuro: Protective sensation is grossly intact. MSK: No pain on palpation to bilateral feet in the plantar aspect of the calcaneus along the medial calcaneal tubercle radiating towards the medial arch. Range of motion of the forefoot hindfoot and ankles within normal limits without pain. MMT 5/5. No crepitus noted. Collapse of arches noted upon weight-bearing. Nonantalgic gait noted unassisted. Negative windlass mechanism. Results Reviewed Results Reviewed: Podiatry Read of B/L Foot xrays (07/16/25): Posterior Calcaneal spur noted B/L. Mild Met adductus noted B/L. Joint spacing WNL. No acute fractures or dislocations noted. B/L Foot xrays (07/16/25): Findings: Right foot: Bones intact. No dislocations. No significant loss of joint space, osteophytes, or erosions. No ankle effusion. No radiopaque foreign body. Left foot: Bones intact. No dislocations. No significant loss of joint space, osteophytes, or erosions. No ankle effusion. No radiopaque foreign body. IMPRESSION: 1. No acute findings. 2. No significant degenerative change bilaterally. Podiatry Read of Right ankle xrays (07/15/25): No acute fractures or dislocations noted. Posterior calcaneal spur noted. Joint spaces WNL. Right ankle xrays (07/15/25): Findings: No fractures, subluxations or dislocations. Ankle mortise intact. Normal plafond. No osteochondral lesions. Calcaneus and subtalar joint intact. No significant arthritic change. No plantar calcaneal spur. Posterior calcaneal enthesophyte. Minimal spurring distal fibular head Normal bone mineralization and soft tissues. Normal pre-Achilles fat pad. No radiopaque foreign body. Impression: 1. No acute osseous abnormality or significant degenerative changes. Assessment & Plan Assessment & Plan (1) Paresthesia of right foot: Code(s): R20.2 - Paresthesia of skin Category: Medical (2) Right ankle pain: Code(s): M25.571 - Pain in right ankle and joints of right foot Category: Medical Qualifiers: Chronicity: unspecified Qualified Code(s): M25.571 - Pain in right ankle and joints of right foot (3) Bilateral pes planus: Code(s): M21.41 - Flat foot [pes planus] (acquired), right foot; M21.42 - Flat foot [pes planus] (acquired), left foot Category: Medical (4) Plantar fasciitis, bilateral: Code(s): M72.2 - Plantar fascial fibromatosis Category: Medical (5) Bilateral foot pain: Code(s): M79.671 - Pain in right foot; M79.672 - Pain in left foot Category: Medical (6) Calcaneal spur of both feet: Code(s): M77.31 - Calcaneal spur, right foot; M77.32 - Calcaneal spur, left foot Category: Medical Plan Patient was informed and verbally consented to the use of an ambient scribe for clinic note documentation during this visit. I discussed with the patient the management of her B/L foot pain and the use of [id number] orthotics, which have been effective. We also talked about the intermittent burning sensation in her right foot, likely nerve-related, and the use of a lidocaine patch for relief. I advised her to monitor her symptoms and to return in three months for a follow-up, or sooner if her symptoms worsen. - Continue using [id number] orthotics. - Wear supportive shoe gear and avoid barefoot walking. - Prescribed lidocaine patches. - Monitor foot pain and burning sensation; use lidocaine patch as needed for symptomatic relief during periods of increased activity. - Recommend plantar fascial stretching exercises for pain relief. - Take Celebrex as needed for pain. RTC in 3 months Medications: New lidocaine 5% leave on most painful area for up to 12 hrs 1 patch topical DAILY 30 ea 1RF Right foot paresthesia R20.2 - Paresthesia of skin Coding Level of Care Code Tele Est Pt Level 4 (52986) Diagnoses Paresthesia of right foot R20.2 Right ankle pain, unspecified chronicity M25.571 Chronicity: unspecified Bilateral pes planus M21.41; M21.42 Plantar fasciitis, bilateral M72.2 Bilateral foot pain M79.671; M79.672 Calcaneal spur of both feet M77.31; M77.32 Time Spent (min) 38
--- OUTSIDE RECORDS SUMMARY | 2025-08-12 14:36 | XMS_ITS | Clinical Summary ---
Author Organization [employer] Address [address] [place] [address] Care Team Providers Care Ophthalmic Assistant Name Role Phone Unavailable Primary Care [...] Most Recently Relevant to Health Maintenance Insurance [facility] MEDICAID STAND ADULT
--- OUTSIDE RECORDS SUMMARY | 2025-08-12 14:36 | XMS_ITS | Patient Health Record ---
Author Organization [facility] Billing Info Address [address] [place] [address] [place] [address] Care Team Providers Care Outpatient Coder Name Role Phone Joann Fisho Primary Care Provider Unavailab aidee MARCELLE FULLER Unavailable [phone] Reason For Referral No Information Medications Medication [...] Insured Coverage Start Date Coverage End Date [facility] [address] [address] [place], [place] [id number] Tamara Mendiola Self - patient is the insured 1 Medical (General) History Medical History History ICD Code Onychomycosis Pure Hyperglyceridemia Obesity Allergic Rhinitis Asthma Urinary Disorder Sleep Disorder Urinary Incontinence HPV Pelvic and Perineal Pain Surgical History Surgery Date(Month/Year) Tonsillectomy Hospitalization History Reason Date(Month/Year) See Notes
--- OUTSIDE RECORDS SUMMARY | 2025-08-12 14:36 | XMS_ITS | Patient Health Record ---
Author Organization [facility] Address [address] [facility] [address] [place] [address] Care Team Providers Care Avionics Safety Inspector Name Role Phone CRISTEL BRAGA Unavailable [phone] Precious Mehta Unavailable Unavailable Allergies No Known [...] Status Risk Notes Problem Chronic pain syndrome (680728436) Chronic pain syndrome (G89.4) Active confirmed Problem Lumbosacral spondylosis without myelopathy (52945317) Spondylosis without myelopathy or radiculopathy, lumbar region (M47.816) Active confirmed Plan Of Treatment Pending Test Test Name Order Date New Patient UDS 08/02/2022 Future Test Test Name Order Date 15744 Lumbar MBB 2nd joint level 022 78198 Lumbar Medial Branch Block 1st rafita nt level 08/03/2022 Insurance Providers Payer Name Payer Address Payer Phone Subscriber Number Group Number Insured Name Patient Relationship to Insured Coverage Start Date Coverage End Date [employer] [address] [place], [place] [id number] Self - patient is the insured 1 Medical (General) History Medical History History ICD Code asthma - mild intermittent Surgical History Surgery Date(Month/Year) tonsillectomy 2008
--- OUTSIDE RECORDS SUMMARY | 2025-08-12 14:36 | XMS_ITS | Patient Health Record ---
Author Organization [facility] Address [address] [place] [address], [address] [address] Support Name Relationship Address Phone JACOBY FELTON Guarantor Unknown [phone] Reason For Referral No Information Plan Of Treatment No Information
--- OUTSIDE RECORDS SUMMARY | 2025-08-12 14:36 | XMS_ITS | Patient Health Record ---
Author Organization [facility] Address [address] [facility] [address] [place] [address] Care Team Providers Care Mileage Clerk Name Role Phone AlonJesus terry Primary Care Provider Unavailabl e Migration, Provider Unavailable Unavailable Reason For Referral No Information Social History Social History Additional Details Category Social Info Options Details Social History Migrated Social History Alcohol history:Never drinks alcohol , Tobacco history:Former Smoker Problems Problem Type SNOMED Code ICD Code Onset Dates Problem Status W/U Status Risk Notes Problem Malaise and fatigue (074520009) Other malaise and fatigue (780.79) 02/04/20 12 Active confirmed Problem Headache (04882873) HEADACHE (784.0) 02/04/20 12 Active confirmed Problem Staphylococcus aureus infection (261667271) Unspecified staphylococcus infection in conditions classified elsewhere and of unspecified site (041.10) 02/04/20 12 Active confirmed Encounters Encounter Location Date Provider Diagnosis [facility] [address] [place] [address] [address] [place] [address] 02/16/2025 Provider Migration [address] [place] [address] 02/17/2025 Provider Migration Plan Of Treatment No Information Insurance Providers Payer Name Payer Address Payer Phone Subscriber Number Group Number Insured Name Patient Relationship to Insured Coverage Start Date Coverage End Date [employer] [address] [place], [place] [id number] Tamara Mendiola Self - patient is the insured 2
== END 2025-08-12 11:54 | disposition home or self-care (01) ==
LOC: HO.HPODS 11:30
PROVIDERS: Visit Provider Student in an Organized Health Care Education/Training Program
DX: R20.2 Paresthesia of skin (principal); M25.571 Pain in right ankle and joints of right foot; M21.41 Flat foot [pes planus] (acquired), right foot; M21.42 Flat foot [pes planus] (acquired), left foot; M72.2 Plantar fascial fibromatosis; M79.671 Pain in right foot; M79.672 Pain in left foot; M77.31 Calcaneal spur, right foot; M77.32 Calcaneal spur, left foot
CPT/HCPCS: 99214

== ENCOUNTER 2025-08-20 08:32 | Outpatient (AMB) | payer OTHER, SELFPAY ==
--- NOTE | 2025-08-20 08:41 | MHC.OFFVIS ---
Vital Signs 08/20/25 08:46 Height 5 ft 9 in Intake Visit Reasons: Bilateral knee pain Intake Note: Tamara is a 35 year old female who presents with complaints of bilateral knee pains. She describes her pains as sharp in nature. She has been taking Celebrex which gives her mild relief. She has had viscosupplementation injections which gave her minimal relief. She continues with her exercise program. Allergies No Known Allergies Allergy (Verified 08/20/25 08:47) Medication List - Last Reconciled 08/20/25 by Lemuel Monet MD albuterol sulfate 90 mcg/actuation 2 puffs inhalation QID PRN 30 days albuterol sulfate 5 mg inhalation Q6H PRN celecoxib (Celebrex) 200 mg PO DAILY PRN drospirenone (contraceptive) (Slynd) 4 mg PO DAILY fluticasone propionate 50 mcg/actuation (Flonase Allergy Relief) 1 spray intranasal DAILY hydrocortisone 1% 1 appl WV DAILY lidocaine 5% 1 patch topical DAILY magnesium oxide 500 mg PO DAILY [Nebulizer Machine As directed] polyethylene glycol 3350 (Miralax) 17 grams PO DAILY sennosides (senna) 17.2 mg (2 x 8.6 mg) PO BEDTIME PRN PFSH Medical History (Updated 08/12/25 @ 12:01 by Haylee Shen DPM) Calcaneal spur of both feet Paresthesia of right foot Plantar fasciitis, bilateral Bilateral foot pain Right ankle pain Hx of endometriosis Snores Asthma Osteoarthritis Left knee pain Surgical History Hx laparoscopic cholecystectomy (05/20/25) Hx of tonsillectomy (1998) Family History Mother Asthma Father HTN (hypertension) Paternal Grandmother Osteoporosis Maternal Grandfather Diabetes mellitus Maternal Grandmother Diabetes mellitus Paternal Grandmother Alzheimer's dementia Social History Household Members: Significant Other Housing: House Are you a primary daycare director to a significant other at home: No Do you presently have visiting nurse or other home services: No Comment: n/a Patient Tobacco Use Status: Former Tobacco user Tobacco use type: Cigarette Second Hand Smoke Exposure: No Substance Use Type: Marijuana Physical Exam Const Other: Well-nourished well-developed very friendly female awake alert and oriented x3 in no acute distress Extrem Other: Bilateral knee examination shows minimal effusions, palpable crepitus with range of motion, pain with range of motion, no instability Office Procedures AMB Joint Injection/Aspiration Joint Injection/Aspiration Primary Site: right knee Prep: site was prepped using aseptic technique Injected: 40 mg of, DepoMedrol, with 4 mL of and 1% plain lidocaine Procedure: The patient tolerated the procedure well Coding 88537 - Large joint Procedure code (CPT) selection complete AMB Joint Injection/Aspiration Joint Injection/Aspiration Primary Site: left knee Prep: site was prepped using aseptic technique Injected: 40 mg of, DepoMedrol, with 4 mL of and 1% plain lidocaine Procedure: The patient tolerated the procedure well Coding 22962 - Large joint Procedure code (CPT) selection complete Assessment & Plan Assessment & Plan (1) Osteoarthritis of left knee: Code(s): M17.12 - Unilateral primary osteoarthritis, left knee Category: Medical (2) Osteoarthritis of right knee: Code(s): M17.11 - Unilateral primary osteoarthritis, right knee Category: Medical Qualifiers: Osteoarthritis type: unspecified Qualified Code(s): M17.11 - Unilateral primary osteoarthritis, right knee (3) Pain in both knees: Code(s): M25.561 - Pain in right knee; M25.562 - Pain in left knee Plan Tamara presents with bilateral knee pains due to osteoarthritis. The risks and benefits of bilateral knee cortisone injections were discussed at length with the patient. The patient wished to proceed. She tolerated the injections well. She will continue with her exercise program. She will contact me prior to her follow-up appointment in 3 months should any questions or concerns arise. Feel free to call me at any time should questions regarding her orthopedic management arise. I spent 21 minutes in reviewing the patient's records and imaging studies, seeing the patient and documenting in the medical record. Orders: Orders AMB Joint Injection/Aspiration Today M17.12 - Unilateral primary osteoarthritis, left knee AMB Joint Injection/Aspiration Today M17.11 - Unilateral primary osteoarthritis, right knee Coding Level of Care Code Est Pt Level 3 (85833) Complex EM visit Add On G2211 Diagnoses Osteoarthritis of left knee M17.12 Osteoarthritis of right knee, unspecified osteoarthritis type M17.11 Osteoarthritis type: unspecified Pain in both knees M25.561; M25.562 CPT Codes Coding - 32726 Large joint: 59877 - Large joint ([id number]) Coding - 19802 Large joint: 02976 - Large joint ([id number])
--- OUTSIDE RECORDS SUMMARY | 2025-08-20 08:44 | XMS_ITS | Patient Health Record ---
Author Organization [facility] Address [address] [place] [address], [address] [place] [address] Support Name Relationship Address Phone JACOBY FELTON Guarantor Unknown [phone] Reason For Referral No Information Plan Of Treatment No Information
--- OUTSIDE RECORDS SUMMARY | 2025-08-20 08:44 | XMS_ITS | Clinical Summary ---
Author Organization [facility] Address [address] [facility] [address] [place] [address] Care Team Providers Care Grommet Man Name Role Phone Unavailable Primary Care Provider [...] Most Recently Relevant to Health Maintenance Insurance [facility] MEDICAID STAND ADULT
--- OUTSIDE RECORDS SUMMARY | 2025-08-20 08:44 | XMS_ITS | Patient Health Record ---
Author Organization [facility] Address [address] [place] [address] [place] [address] Care Team Providers Care Precast Concrete Ironworker Name Role Phone Joann Fisho Primary Care Provider Unavailab aidee MARCELLE FULLER Unavailable [phone] Reason For Referral No Information Medications Medication [...] Insured Coverage Start Date Coverage End Date [facility] [address] [address] [place], [place] [id number] Tamara Mendiola Self - patient is the insured 1 Medical (General) History Medical History History ICD Code Onychomycosis Pure Hyperglyceridemia Obesity Allergic Rhinitis Asthma Urinary Disorder Sleep Disorder Urinary Incontinence HPV Pelvic and Perineal Pain Surgical History Surgery Date(Month/Year) Tonsillectomy Hospitalization History Reason Date(Month/Year) See Notes
--- OUTSIDE RECORDS SUMMARY | 2025-08-20 08:44 | XMS_ITS | Patient Health Record ---
Author Organization [facility] Address [address] [facility] [address] [place] [address] Care Team Providers Care Core Drier Name Role Phone AlonJesus terry Primary Care Provider Unavailabl e Migration, Provider Unavailable Unavailable Reason For Referral No Information Social History Social History Additional Details Category Social Info Options Details Social History Migrated Social History Alcohol history:Never drinks alcohol , Tobacco history:Former Smoker Problems Problem Type SNOMED Code ICD Code Onset Dates Problem Status W/U Status Risk Notes Problem Malaise and fatigue (350730213) Other malaise and fatigue (780.79) 02/04/20 12 Active confirmed Problem Headache (80043709) HEADACHE (784.0) 02/04/20 12 Active confirmed Problem Staphylococcus aureus infection (307950622) Unspecified staphylococcus infection in conditions classified elsewhere and of unspecified site (041.10) 02/04/20 12 Active confirmed Encounters Encounter Location Date Provider Diagnosis [facility] [address] [place] [address] [address] [place] [address] 02/16/2025 Provider Migration [address] [place] [address] 02/17/2025 Provider Migration Plan Of Treatment No Information Insurance Providers Payer Name Payer Address Payer Phone Subscriber Number Group Number Insured Name Patient Relationship to Insured Coverage Start Date Coverage End Date [employer] [address] [place], [place] [id number] Tamara Mendiola Self - patient is the insured 2
--- OUTSIDE RECORDS SUMMARY | 2025-08-20 08:44 | XMS_ITS | Patient Health Record ---
Author Organization [facility] Address [address] [facility] [address] [place] [address] Care Team Providers Care Spinning Lathe Operator Name Role Phone CRISTEL BRAGA Unavailable [phone] Precious Mehta Unavailable Unavailable Allergies No Known [...] Status Risk Notes Problem Chronic pain syndrome (001258288) Chronic pain syndrome (G89.4) Active confirmed Problem Lumbosacral spondylosis without myelopathy (65506696) Spondylosis without myelopathy or radiculopathy, lumbar region (M47.816) Active confirmed Plan Of Treatment Pending Test Test Name Order Date New Patient UDS 08/02/2022 Future Test Test Name Order Date 31429 Lumbar MBB 2nd joint level 022 38076 Lumbar Medial Branch Block 1st rafita nt level 08/03/2022 Insurance Providers Payer Name Payer Address Payer Phone Subscriber Number Group Number Insured Name Patient Relationship to Insured Coverage Start Date Coverage End Date [employer] [address] [place], [place] [id number] Self - patient is the insured 1 Medical (General) History Medical History History ICD Code asthma - mild intermittent Surgical History Surgery Date(Month/Year) tonsillectomy 2008
== END 2025-08-20 09:02 | disposition home or self-care (01) ==
LOC: HO.HOS 08:33
PROVIDERS: Visit Provider Orthopaedic Surgery
DX: M17.0 Bilateral primary osteoarthritis of knee (principal); M25.561 Pain in right knee; M25.562 Pain in left knee
CPT/HCPCS: 20610; 99213

== ENCOUNTER → 2025-08-20 08:32 | Outpatient (BNVA) | payer OTHER, SELFPAY | PROVIDERS: Visit Provider Orthopaedic Surgery | DX: M17.0 Bilateral primary osteoarthritis of knee (principal); M25.561 Pain in right knee; M25.562 Pain in left knee | CPT/HCPCS: 20610; J1010; J2003 ==